=== PATIENT | female | born 1950 | race Caucasian/White ===

== ENCOUNTER 2016-12-04 09:24 | Outpatient (CLI) | payer MEDICARE, OTHER ==
--- NOTE | 2016-12-05 18:27 | Mammography Report ---
DIGITAL SCREENING MAMMOGRAM: 12/04/2016 CLINICAL INDICATION: A 66-year-old with family history of breast cancer for screening. COMPARISON: 11/2015, 10/2014, 11/2012, 11/2011, 11/2010, 11/2009, 11/2008. TECHNIQUE: Routine CC and MLO projections were obtained of the breasts. The breasts again demonstrate heterogeneously dense fibroglandular parenchyma bilaterally. Coarse an d punctate, typically benign calcifications are present. No suspicious masses, clustered microcalcif ications, or regions of architectural distortion are identified. IMPRESSION: BENIGN FINDINGS. RECOMMENDATION: ROUTINE ANNUAL SCREENING UNLESS OTHERWISE CLINICALLY INDICATED. BIRADS CATEGORY: 2, BENIGN FINDINGS. STANDARD QUALIFYING STATEMENTS 1. This examination was reviewed with the aid of Computed-Aided Detection (CAD). 2. A negative or benign imaging report should not delay biopsy if clinically suspicious findings are present. Consider surgical consultation if warranted. More than 5% of cancers are not identified b y imaging. 3. Dense breasts may obscure an underlying neoplasm. JOB #: [id number] EXT JOB #:[id number]
== END 2016-12-04 09:25 | disposition home or self-care (01) ==
LOC: DI 09:24
PROVIDERS: ATTEND Family Medicine
DX: Z12.31 Encounter for screening mammogram for malignant neoplasm of breast (principal); Z80.3 Family history of malignant neoplasm of breast
CPT/HCPCS: 77067

== ENCOUNTER → 2017-02-02 | Outpatient (CLI) | payer MEDICARE, OTHER ==
[2017-02-02 14:24] LABS: CREATININE 0.7 mg/dL (0.4-1.0)
== END ==
LOC: LAB.WCP 08:00
PROVIDERS: ATTEND Orthopaedic Surgery
DX: Z01.812 Encounter for preprocedural laboratory examination (principal)
CPT/HCPCS: 36415; 82565; 84520

== ENCOUNTER 2017-03-17 12:26 | Outpatient (CLI) | payer MEDICARE, OTHER ==
[2017-03-17 12:47] LABS: BASOPHILS # (AUTO) 0.1 10^3/uL (0.0-0.1); BASOPHILS % (AUTO) 0.6 %; EOSINOPHILS # (AUTO) 0.2 10^3/uL (0.0-0.7); EOSINOPHILS % (AUTO) 2.4 %; HCT - HEMATOCRIT 38.2 % (37.0-47.0); LYMPHOCYTES # (AUTO) 2.8 10^3/uL (1.5-3.5); LYMPHOCYTES % (AUTO) 27.1 %; MEAN CORPUSCULAR HEMOGLOBIN 29.5 pg (27.0-31.0); MEAN CORPUSCULAR HGB CONC 34.1 g/dL (32.0-36.0); MEAN CORPUSCULAR VOLUME 86.6 fL (81.0-99.0); MEAN PLATELET VOLUME 7.9 fL (7.9-10.8); MONOCYTES # (AUTO) 0.7 10^3/uL (0.0-1.0); MONOCYTES % (AUTO) 6.6 %; NEUTROPHILS # (AUTO) 6.4 10^3/uL (1.5-6.6); NEUTROPHILS % (AUTO) 63.3 %; NUCLEATED RED BLOOD CELLS AUTO 0.1 /100WBC; RED BLOOD COUNT 4.41 10^6/uL (4.20-5.40); RED CELL DISTRIBUTION WIDTH 12.5 % (12.0-15.0); UNCORRECTED WHITE BLOOD COUNT 10.2 x10^3/uL; WHITE BLOOD COUNT 10.2 x10^3/uL (4.8-10.8)
[2017-03-17 13:01] LABS: ALBUMIN/GLOBULIN RATIO 1.2 (1.0-2.2); BILIRUBIN,TOTAL 0.3 mg/dL (0.2-1.0); CALCIUM 9.5 mg/dL (8.5-10.3); CREATININE 0.9 mg/dL (0.4-1.0); POTASSIUM 3.8 mmol/L (3.5-5.0); TOTAL PROTEIN 7.4 g/dL (6.7-8.2)
== END 2017-03-17 12:27 | disposition home or self-care (01) ==
LOC: LAB 12:26
PROVIDERS: ATTEND Family Medicine
DX: R10.9 Unspecified abdominal pain (principal)
CPT/HCPCS: 36415; 80053; 85025; 85651; 86140

== ENCOUNTER 2017-04-21 12:10 | Outpatient (CLI) | payer MEDICARE, OTHER ==
[2017-04-21 12:33] LABS: BASOPHILS # (AUTO) 0.1 10^3/uL (0.0-0.1); BASOPHILS % (AUTO) 0.6 %; EOSINOPHILS # (AUTO) 0.5 10^3/uL (0.0-0.7); EOSINOPHILS % (AUTO) 5.4 %; HCT - HEMATOCRIT 37.4 % (37.0-47.0); HGB - HEMOGLOBIN 12.7 g/dL (12.0-16.0); LYMPHOCYTES # (AUTO) 2.6 10^3/uL (1.5-3.5); LYMPHOCYTES % (AUTO) 30.4 %; MEAN CORPUSCULAR HEMOGLOBIN 29.3 pg (27.0-31.0); MEAN CORPUSCULAR HGB CONC 34.1 g/dL (32.0-36.0); MEAN CORPUSCULAR VOLUME 85.8 fL (81.0-99.0); MEAN PLATELET VOLUME 7.4 fL (7.9-10.8); MONOCYTES # (AUTO) 0.5 10^3/uL (0.0-1.0); MONOCYTES % (AUTO) 6.4 %; NEUTROPHILS # (AUTO) 4.8 10^3/uL (1.5-6.6); NEUTROPHILS % (AUTO) 57.2 %; NUCLEATED RED BLOOD CELLS AUTO 0.1 /100WBC; RED BLOOD COUNT 4.35 10^6/uL (4.20-5.40); RED CELL DISTRIBUTION WIDTH 12.7 % (12.0-15.0); UNCORRECTED WHITE BLOOD COUNT 8.4 x10^3/uL; WHITE BLOOD COUNT 8.4 x10^3/uL (4.8-10.8)
[2017-04-21 12:46] LABS: ALBUMIN/GLOBULIN RATIO 1.2 (1.0-2.2); BILIRUBIN,TOTAL 0.7 mg/dL (0.2-1.0); CALCIUM 8.9 mg/dL (8.5-10.3); CREATININE 0.7 mg/dL (0.4-1.0); POTASSIUM 3.2 mmol/L (3.5-5.0); TOTAL PROTEIN 7.2 g/dL (6.7-8.2)
--- NOTE | 2017-04-22 15:49 | XRAY Report ---
EXAM: CHEST RADIOGRAPHY EXAM DATE: 04/21/2017 12:52 PM. CLINICAL HISTORY: Cough COMPARISON: 10/23/2010 and 02/22/2015. TECHNIQUE: 2 views. FINDINGS: Lungs/Pleura: No focal opacities evident. No pleural effusion. No pneumothorax. Normal volumes. Mediastinum: Heart and mediastinal contours are unremarkable. Other: None. IMPRESSION: No acute radiographic abnormality identified. [facility] Referring Provider Line: [phone] SITE ID: [id number]
== END 2017-04-21 12:11 | disposition home or self-care (01) ==
LOC: LAB 12:10
PROVIDERS: ATTEND Physician Assistant Medical
DX: R10.9 Unspecified abdominal pain (principal); R05 Cough
CPT/HCPCS: 36415; 71020; 80053; 82150; 83690; 85025

== ENCOUNTER 2017-04-24 09:41 | Outpatient (CLI) | payer MEDICARE, OTHER ==
[2017-04-24] MEDS ORDERED: IOPAMIDOL-300 100 ML VIAL ONE (10:11)
[2017-04-24] MEDS ORDERED: IOPAMIDOL-300 50 ML VIAL ONE (10:11)
[2017-04-24] MEDS ORDERED: IOPAMIDOL-300 100 ML VIAL IVP ONE (11:41)
[2017-04-24] MEDS ORDERED: IOPAMIDOL-300 50 ML VIAL PO ONE (11:41)
--- NOTE | 2017-04-24 17:39 | CT Report ---
CT ABDOMEN AND PELVIS WITH CONTRAST: 04/24/2017 CLINICAL INDICATION: Pain. COMPARISON: 04/19/[address] images of the abdomen and pelvis were obtained with 100 mL Isovue-300 intravenously as well as oral contrast. In accordance with CT protocol optimization, one or more of the following dose reduction techniques w ere utilized for this exam: automated exposure control, adjustment of mA and/or KV based on patient size, or use of iterative reconstructive technique. Limited evaluation of the lung bases demonstrates atelectasis. ABDOMEN: The calcification in the posterior right lobe of the liver is stable. No new hepatic lesio n is seen. The spleen, pancreas, kidneys, and adrenal glands are unremarkable. The patient is statu s post cholecystectomy. There is possible wall thickening in the ascending colon, just past the ileo cecal valve. Consider correlation with colonoscopy. No bowel dilatation, free gas, or free fluid is present. No abdominal adenopathy is seen. PELVIS: The pelvic organs appear unremarkable. A few scattered sigmoid diverticula are present, wit hout CT evidence of diverticulitis. No pelvic adenopathy or free fluid is present. Osseous structures demonstrate degenerative changes. IMPRESSION: POSSIBLE WALL THICKENING IN THE ASCENDING COLON, JUST SUPERIOR TO THE ILEOCECAL VALVE. CONSIDER CORRELATION WITH COLONOSCOPY. NO OTHER EVIDENT ETIOLOGY FOR PATIENT'S PAIN. JOB #: [id number] EXT JOB #:[id number]
== END 2017-04-24 09:42 | disposition home or self-care (01) ==
LOC: DI 09:41
PROVIDERS: ATTEND Physician Assistant Medical
DX: R10.9 Unspecified abdominal pain (principal)
CPT/HCPCS: 74177; Q9967

== ENCOUNTER 2017-05-06 03:41 | Emergency (ER) | payer MEDICARE, OTHER ==
--- NOTE | 2017-05-06 04:20 | ED Physician Documentation ---
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 she awoke tonight with generalized pruritis. Review of Systems Constitutional: denies: Fever Throat: denies: Sore throat Cardiac: reports: Reviewed and negative Respiratory: reports: Dyspnea, Cough Skin: denies: Rash PD PAST MEDICAL HISTORY - Past Medical History Past Medical History: Yes Cardiovascular: Hypertension Musculoskeletal: Other - Past Surgical History Past Surgical History: Yes General: Cholecystectomy Ortho: Spine surgery - Present Medications Home Medications: Ambulatory Orders Medication Instructions Recorded Confirmed Calcium Carbonate [Calcium] 1 tab PO DAILY 05/07/14 08/18/15 Cholecalciferol (Vitamin D3) 1 cap PO DAILY 05/07/14 08/18/15 [Vitamin D-3] Cyanocobalamin/Folic Acid [Vitamin 1 tab PO DAILY 05/07/14 08/18/15 H35-Swsik Acid Tablet] Hydrochlorothiazide 25 mg PO DAILY 05/07/14 08/18/15 Ascorbic Acid [Vitamin C] 1,000 mg PO DAILY 03/23/15 08/18/15 Multivitamin [Multivitamins] 1 each PO DAILY 03/23/15 08/18/15 Ubidecarenone/Vit E Acetate [Co 1 each PO DAILY 03/23/15 08/18/15 Q-10 100 mg Softgel] Albuterol Sulf [Ventolin Hfa 1 - 2 puffs INH Q4HR PRN #1 inhaler 05/06/17 Inhaler] Levofloxacin [Levaquin] 500 mg PO DAILY #6 tablet 05/06/17 Prednisone 40 mg PO DAILY 3 Days #6 tablet 05/06/17 - Allergies Allergies/Adverse Reactions: Allergies Allergy/AdvReac Type Severity Reaction Status Date / Time Penicillins Allergy Rash Verified 05/06/17 03:49 codeine AdvReac Unknown Verified 05/06/17 03:49 oxycodone AdvReac Emesis Verified 05/06/17 03:49 - Social History Does the pt smoke?: No Smoking Status: Never smoker Does the pt drink ETOH?: No Does the pt have substance abuse?: No - Immunizations Immunizations are current?: Yes PD ED PE NORMAL - Vitals Vital signs reviewed: Yes - General General: Alert and oriented X 3, No acute distress, Well developed/nourished, Other (frequent cough during H+P, as well as itching) - Cardiac Cardiac: RRR, No murmur - Respiratory Respiratory: No respiratory distress, Clear bilaterally - Derm Derm: Normal color, Warm and dry, No rash Results - Vitals Vitals: Oxygen O2 Source Room air PD MEDICAL DECISION MAKING - ED course Complexity details: reviewed results, re-evaluated patient (significant improvement subsequent to albuterol neb, PO benadryl;minimal cough and no itching prior to discharge), considered differential, d/w patient Departure - Departure Disposition: 01 Home, Self Care Clinical Impression: Bronchitis Condition: Good Instructions: ED Drug React Allergic, ED Upper Resp Infec Abx Tx Prescriptions: Albuterol Sulf [Ventolin Hfa Inhaler] 1 - 2 puffs INH Q4HR PRN #1 inhaler PRN Reason: Shortness Of Air/Wheezing Levofloxacin [Levaquin] 500 mg PO DAILY #6 tablet Prednisone 40 mg PO DAILY 3 Days #6 tablet Comments: Discontinue the zithromax and start taking the levaquin Discharge Date/Time: 05/06/17 06:21
[2017-05-06] MEDS ORDERED: diphenhydrAMINE 25 MG CAPSULE PO STA (04:43)
[2017-05-06] MEDS ORDERED: ALBUTEROL NEB 2.5 MG/3 ML INH STA (04:43)
[2017-05-06] MEDS ORDERED: predniSONE 20 MG TABLET PO STA (04:44)
[2017-05-06] MEDS ORDERED: diphenhydrAMINE 25 MG CAPSULE PO ONE (04:54)
[2017-05-06] MEDS ORDERED: predniSONE 20 MG TABLET ONE (04:54)
[2017-05-06] MEDS ORDERED: ALBUTEROL NEB 2.5 MG/3 ML INH ONE (05:14)
[2017-05-06] MEDS ORDERED: levoFLOXacin 250 MG TABLET PO STA (05:58)
[2017-05-06] MEDS ORDERED: levoFLOXacin 250 MG TABLET ONE (06:13)
[2017-05-06 06:17] VITALS: BP 171/67
== END 2017-05-06 06:21 | disposition home or self-care (01) ==
LOC: ED 03:41
DX: J40 Bronchitis, not specified as acute or chronic (principal); I10 Essential (primary) hypertension
CPT/HCPCS: 94640; 99283; A9270; J7512; J7613

== ENCOUNTER 2017-06-27 09:50 | Outpatient (CLI) | payer MEDICARE, OTHER ==
--- NOTE | 2017-06-27 12:01 | XRAY Report ---
TWO-VIEW CHEST: 06/27/2017 CLINICAL INDICATION: Bronchitis. COMPARISON: 04/21/2017 FINDINGS: Frontal and lateral views of the chest demonstrate a normal cardiac silhouette. The lungs are clear. No effusion or pneumothorax is present. IMPRESSION: NORMAL CHEST, UNCHANGED. JOB #: [id number] EXT JOB #:[id number]
== END 2017-06-27 09:51 | disposition home or self-care (01) ==
LOC: DI 09:50
PROVIDERS: ATTEND Family Medicine
DX: J20.9 Acute bronchitis, unspecified (principal)
CPT/HCPCS: 71020

== ENCOUNTER 2017-09-25 08:00 | Outpatient (CLI) | payer MEDICARE, OTHER | END 2017-09-25 08:01 | disposition home or self-care (01) | LOC: LAB.WCP 08:00 | PROVIDERS: ATTEND Family Medicine | DX: M06.4 Inflammatory polyarthropathy (principal) | CPT/HCPCS: 36415; 85651 ==

== ENCOUNTER 2017-10-26 16:00 | Outpatient (CLI) | payer MEDICARE, OTHER ==
--- NOTE | 2017-10-26 16:59 | XRAY Report ---
EXAM: CHEST RADIOGRAPHY EXAM DATE: 10/26/2017 04:15 PM. CLINICAL HISTORY: COUGH. COMPARISON: None. TECHNIQUE: 2 views. FINDINGS: Lungs/Pleura: No focal opacities evident. No pleural effusion. No pneumothorax. Normal volumes. Mediastinum: Heart and mediastinal contours are unremarkable. There is thoracic aortic calcification. Other: None. IMPRESSION: No acute intrathoracic plain film abnormality. [facility] Referring Provider Line: [phone] SITE ID: [id number]
== END 2017-10-26 16:01 | disposition home or self-care (01) ==
LOC: DI 16:00
PROVIDERS: ATTEND Family Medicine
DX: R05 Cough (principal)
CPT/HCPCS: 71046

== ENCOUNTER 2017-11-12 16:46 | Emergency (ER) | payer MEDICARE, OTHER ==
[2017-11-12 17:41] LABS: BASOPHILS # (AUTO) 0.1 10^3/uL (0.0-0.1); BASOPHILS % (AUTO) 0.8 %; EOSINOPHILS # (AUTO) 0.6 10^3/uL (0.0-0.7); EOSINOPHILS % (AUTO) 5.4 %; HGB - HEMOGLOBIN 12.3 g/dL (12.0-16.0); LYMPHOCYTES # (AUTO) 2.5 10^3/uL (1.5-3.5); LYMPHOCYTES % (AUTO) 23.8 %; MEAN CORPUSCULAR HEMOGLOBIN 29.6 pg (27.0-31.0); MEAN CORPUSCULAR HGB CONC 34.5 g/dL (32.0-36.0); MEAN PLATELET VOLUME 7.3 fL (7.9-10.8); MONOCYTES # (AUTO) 0.7 10^3/uL (0.0-1.0); MONOCYTES % (AUTO) 7.2 %; NEUTROPHILS # (AUTO) 6.5 10^3/uL (1.5-6.6); NEUTROPHILS % (AUTO) 62.8 %; PLT - PLATELET COUNT 305 10^3/uL (130-450); RED BLOOD COUNT 4.16 10^6/uL (4.20-5.40); RED CELL DISTRIBUTION WIDTH 13.4 % (12.0-15.0); WHITE BLOOD COUNT 10.4 x10^3/uL (4.8-10.8)
--- NOTE | 2017-11-12 17:58 | XRAY Report ---
EXAM: CHEST RADIOGRAPHY EXAM DATE: 11/12/2017 05:45 PM. CLINICAL HISTORY: Cough. COMPARISON: 10/26/2017. TECHNIQUE: 2 views. FINDINGS: Lungs/Pleura: Mild interstitial prominence. No definite localized infiltrate, consolidation, effusion , or pneumothorax. Mediastinum: Heart and mediastinal contours are unremarkable. Other: Degenerative changes. IMPRESSION: No acute disease. [facility] Referring Provider Line: [phone] SITE ID: [id number]
[2017-11-12 17:59] LABS: ALBUMIN 3.9 g/dL (3.2-5.5); ALBUMIN/GLOBULIN RATIO 1.1 (1.0-2.2); BILIRUBIN,TOTAL 0.4 mg/dL (0.2-1.0); CALCIUM 9.2 mg/dL (8.5-10.3); CREATININE 0.9 mg/dL (0.4-1.0); TOTAL PROTEIN 7.6 g/dL (6.7-8.2)
[2017-11-12 18:15] LABS: BILIRUBIN,URINE NEGATIVE (NEGATIVE); GLUCOSE, URINE (UA) NEGATIVE (NEGATIVE); KETONES,URINE (UA) NEGATIVE (NEGATIVE); LEUKOCYTE ESTERASE, URINE MODERATE (NEGATIVE); NITRITE,URINE POSITIVE (NEGATIVE); OCCULT BLOOD,URINE TRACE-INTA (NEGATIVE); PH,URINE 5.5 PH (5.0-7.5); PROTEIN,URINE NEGATIVE (NEGATIVE); UROBILINOGEN,URINE 0.2 (NORMAL) E.U./dL (NORMAL)
[2017-11-12 18:17] LABS: CLARITY,URINE HAZY (CLEAR)
[2017-11-12 18:35] LABS: BACTERIA,URINE Many /HPF (None Seen); RBC,URINE 0-5 /HPF (0-5)
[2017-11-12 18:36] LABS: SQUAMOUS EPITHELIAL CELL,UR NONE SEEN (<= Few)
[2017-11-12 18:44] VITALS: BP 142/84
[2017-11-12] MEDS ORDERED: cefTRIAXone 1 GM VIAL IM STA (18:56)
[2017-11-12] MEDS ORDERED: LIDOCAINE 1% 2 ML VIAL SUBQ ONE (18:56)
--- NOTE | 2017-11-12 19:11 | ED Physician Documentation ---
PD HPI URI - Stated complaint Stated Complaint: FATIGUE/COUGH/ALL OVER PX - Chief complaint Chief Complaint: Resp - History obtained from History obtained from: Patient, Family - History of Present Illness Timing - onset: How many weeks ago (6) Timing duration: Weeks (6) Timing details: Gradual onset Pain level max: 5 Pain level now: 4 Associated symptoms: Nasal congestion, Rhinorrhea, Dry cough. No: Fever Contributing factors: Sick contact Improves by: Rest Worsened by: Activity, Breathing Recently seen: Clinic - Additional information Additional information: Patient is a 66-year-old female who presents to the emergency department with intermittent illnesses for the past 6 week. Started with vomiting diarrhea, then progressed to respiratory symptoms. Has seen her PCP multiple times for same. Review of Systems Constitutional: denies: Fever, Chills Ears: denies: Ear pain Nose: reports: Rhinorrhea / runny nose, Congestion Throat: denies: Sore throat Cardiac: denies: Chest pain / pressure Respiratory: reports: Cough. denies: Wheezing GI: denies: Abdominal Pain, Nausea, Vomiting, Diarrhea : reports: Dysuria (mild) Skin: denies: Rash Musculoskeletal: denies: Neck pain, Back pain Neurologic: denies: Headache PD PAST MEDICAL HISTORY - Past Medical History Past Medical History: Yes Cardiovascular: Hypertension Musculoskeletal: Other - Past Surgical History Past Surgical History: Yes General: Cholecystectomy Ortho: Spine surgery - Present Medications Home Medications: Ambulatory Orders Medication Instructions Recorded Confirmed Calcium Carbonate [Calcium] 1 tab PO DAILY 05/07/14 11/12/17 Cholecalciferol (Vitamin D3) 1 cap PO DAILY 05/07/14 11/12/17 [Vitamin D-3] Cyanocobalamin/Folic Acid [Vitamin 1 tab PO DAILY 05/07/14 11/12/17 P83-Ucxdj Acid Tablet] Hydrochlorothiazide 25 mg PO DAILY 05/07/14 11/12/17 Ascorbic Acid [Vitamin C] 1,000 mg PO DAILY 03/23/15 11/12/17 Multivitamin [Multivitamins] 1 each PO DAILY 03/23/15 11/12/17 Ubidecarenone/Vit E Acetate [Co 1 each PO DAILY 03/23/15 11/12/17 Q-10 100 mg Softgel] Albuterol Sulf [Ventolin Hfa 1 - 2 puffs INH Q4HR PRN #1 inhaler 05/06/17 Inhaler] Benzonatate [Tessalon Perle] 100 - 200 mg PO TID PRN #30 capsule 11/12/17 Hydrocodone/Chlorphen P-Stirex 5 ml PO BID PRN #90 ml 11/12/17 [Hydrocodone-Chlorphen ER Susp] Nitrofurantoin Monohyd/M-Cryst 100 mg PO BID #10 capsule 11/12/17 [Macrobid 100 mg Capsule] - Allergies Allergies/Adverse Reactions: Allergies Allergy/AdvReac Type Severity Reaction Status Date / Time Penicillins Allergy Rash Verified 05/06/17 03:49 codeine AdvReac Unknown Verified 05/06/17 03:49 oxycodone AdvReac Emesis Verified 05/06/17 03:49 - Social History Does the pt smoke?: No Smoking Status: Never smoker Does the pt drink ETOH?: No Does the pt have substance abuse?: No - Immunizations Immunizations are current?: Yes PD ED PE NORMAL - Vitals Vital signs reviewed: Yes - General General: Alert and oriented X 3, No acute distress - HEENT HEENT: PERRL, Ears normal, Moist mucous membranes, Pharynx benign - Neck Neck: Supple, no meningeal sign, No adenopathy - Cardiac Cardiac: RRR, No murmur - Respiratory Respiratory: No respiratory distress, Clear bilaterally - Abdomen Abdomen: Soft, Non tender, Non distended - Back Back: No CVA TTP, No spinal TTP - Derm Derm: Warm and dry - Extremities Extremities: No edema - Neuro Neuro: Alert and oriented X 3 - Psych Psych: Normal mood, Normal affect Results - Vitals Vitals: Oxygen O2 Source Room air - Labs Labs: Microbiology 11/12/17 17:25 Urine Culture - Final Urine,Clean Catch Escherichia Coli Laboratory Tests 11/12/17 11/12/17 11/12/17 17:25 17:28 17:28 WBC 10.4 RBC 4.16 L Hgb 12.3 Hct 35.8 L MCV 86.0 MCH 29.6 MCHC 34.5 RDW 13.4 Plt Count 305 MPV 7.3 L Neut # 6.5 Lymph # 2.5 Stone # 0.7 Eos # 0.6 Baso # 0.1 Absolute Nucleated RBC 0.00 Nucleated RBC % 0.0 Sodium 136 Potassium 3.7 Chloride 96 L Carbon Dioxide 31 Anion Gap 9.0 BUN 22 H Creatinine 0.9 Estimated GFR (MDRD) 62 L Glucose 122 H Calcium 9.2 Total Bilirubin 0.4 AST 18 ALT 17 Alkaline Phosphatase 86 Total Protein 7.6 Albumin 3.9 Globulin 3.7 Albumin/Globulin Ratio 1.1 Lipase 22 Urine Color YELLOW Urine Clarity HAZY Urine pH 5.5 Ur Specific Kelly 1.015 Urine Protein NEGATIVE Urine Glucose (UA) NEGATIVE Urine Ketones NEGATIVE Urine Occult Blood TRACE-INTA Urine Nitrite POSITIVE H Urine Bilirubin NEGATIVE Urine Urobilinogen 0.2 (NORMAL) Ur Leukocyte Esterase MODERATE H Urine RBC 0-5 Urine WBC >25 H Ur Squamous Epith Cells NONE SEEN Urine Bacteria Many H Ur Microscopic Review INDICATED Urine Culture Comments INDICATED - Rads (name of study) cxr Radiology: Prelim report reviewed, EMP read contemporaneously, See rad report ( no acute disease) PD MEDICAL DECISION MAKING - ED course Complexity details: reviewed results, re-evaluated patient, considered differential, d/w patient, d/w family ED course: Patient is a 66-year-old female who presents to the emergency department with what appears to be a viral upper respiratory infection. She is also found to have a urinary tract infection. Given IM Rocephin and will place on oral antibiotics. She is well-appearing, nontoxic. No respiratory distress or hypoxia. Will prescribe cough medication for home as well. We will have her follow-up with her doctor for further care. Patient counseled regarding signs and symptoms for which I believe and urgent re-evaluation would be necessary. Patient with good understanding of and agreement to plan and is comfortable going home at this time This document was made in part using voice recognition software. While efforts are made to proofread this document, sound alike and grammatical errors may occur. Departure - Departure Disposition: Home, Self Care Clinical Impression: Viral URI UTI (urinary tract infection) Qualifiers: Urinary tract infection type: acute cystitis Hematuria presence: without hematuria Qualified Code(s): N30.00 - Acute cystitis without hematuria Condition: Good Instructions: ED UTI Cystitis Female, ED Viral Syndrome Follow-Up: Valerio Hightower MD [Primary Care Provider] - Within 1 week Prescriptions: Benzonatate [Tessalon Perle] 100 - 200 mg PO TID PRN #30 capsule PRN Reason: Cough Hydrocodone/Chlorphen P-Stirex [Hydrocodone-Chlorphen ER Susp] 5 ml PO BID PRN # 90 ml PRN Reason: Cough Nitrofurantoin Monohyd/M-Cryst [Macrobid 100 mg Capsule] 100 mg PO BID #10 capsule Comments: Return if you worsen. Take all antibiotics until gone. Do not drink alcohol or drive while on narcotic pain medicine. Note that many narcotic pain relievers also contain tylenol/acetaminophen. Please ensure that your total dose of acetaminophen from all sources does not exceed 3 grams (3000mg) per day. You may constipated on this medication, take a stool softener such as "Colace" twice a day while you are on it. Also recommend a posn-etb-khbfvrt laxative such as senna or MiraLAX any day that you do not have a bowel movement. If you received narcotic pain medication in the emergency department, do not drive or operate machinery for the next 24 hours. Discharge Date/Time: 11/12/17 19:27
== END 2017-11-12 19:27 | disposition home or self-care (01) ==
LOC: ED 16:46
DX: N30.00 Acute cystitis without hematuria (principal); I10 Essential (primary) hypertension
CPT/HCPCS: 36415; 71046; 80053; 81001; 81003; 83690; 85025; 87086; 96372; 99283; 99284

== ENCOUNTER 2017-12-04 10:37 | Outpatient (CLI) | payer MEDICARE, OTHER ==
--- NOTE | 2017-12-05 13:50 | Mammography Report ---
DIGITAL SCREENING MAMMOGRAM: 12/04/2017 CLINICAL INDICATION: A 67-year-old with family history of breast cancer for screening. COMPARISON: 11/2016, 11/2015, 10/2014, 11/2012, 11/2011, 11/2010, 11/2009. TECHNIQUE: Routine CC and MLO projections were obtained of the breasts. FINDINGS: The breasts again demonstrate heterogeneously dense fibroglandular parenchyma bilaterally. Circumscribed nodules are stable. Coarse and punctate, typically benign calcifications are present. No suspicious masses, clustered microcalcifications, or regions of architectural distortion are identified. IMPRESSION: BENIGN FINDINGS. RECOMMENDATION: Routine annual screening unless otherwise clinically indicated. BI-RADS CATEGORY 2 - BENIGN FINDINGS. STANDARD QUALIFYING STATEMENTS: 1. This examination was reviewed with the aid of Computer-Aided Detection (CAD). 2. A negative or benign imaging report should not delay biopsy if clinically suspicious findings are present. Consider surgical consultation if warranted. More than 5% of cancers are not identified by imaging. 3. Dense breasts may obscure an underlying neoplasm. TD: 12/05/2017 13:49
== END 2017-12-04 10:38 | disposition home or self-care (01) ==
LOC: DI.N 10:37
PROVIDERS: ATTEND Family Medicine
DX: Z12.31 Encounter for screening mammogram for malignant neoplasm of breast (principal); Z80.3 Family history of malignant neoplasm of breast
CPT/HCPCS: 77067

== ENCOUNTER 2018-10-31 08:00 | Outpatient (CLI) | payer MEDICARE, OTHER ==
[2018-11-06 17:11] LABS: B. PARAPERTUSSIS DNA NOT DETECTED; B. PERTUSSIS DNA NOT DETECTED; SOURCE NASOPHARYNGEAL
== END 2018-10-31 23:59 | disposition home or self-care (01) ==
LOC: LAB.WCP 08:00
PROVIDERS: ATTEND Family Medicine
DX: R05 Cough (principal)
CPT/HCPCS: 36415; 87801

== ENCOUNTER 2018-10-31 08:25 | Outpatient (CLI) | payer MEDICARE, OTHER ==
--- NOTE | 2018-10-31 14:31 | XRAY Report ---
Reason: COUGH Procedure Date: 10/31/2018 Accession Number: [id number] / [id number] Procedure: XR - Chest 2 View X-Ray CPT Code: 63464 FULL RESULT: EXAM: CHEST RADIOGRAPHY EXAM DATE: 10/31/2018 08:42 AM. CLINICAL HISTORY: COUGH. COMPARISON: CHEST 2 VIEW 11/12/2017 5:36 PM. TECHNIQUE: 2 views. FINDINGS: Lungs/Pleura: No focal opacities evident. No pleural effusion. No pneumothorax. Normal volumes. Mediastinum: Heart and mediastinal contours are unremarkable. Other: None. IMPRESSION: Normal 2-view chest radiography. [facility]
== END 2018-10-31 08:26 | disposition home or self-care (01) ==
LOC: DI 08:25
PROVIDERS: ATTEND Family Medicine
DX: R05 Cough (principal)
CPT/HCPCS: 71046

== ENCOUNTER 2018-11-15 08:00 | Outpatient (CLI) | payer MEDICARE, OTHER | END 2018-11-15 23:59 | disposition home or self-care (01) | LOC: LAB.R 08:00 | PROVIDERS: ATTEND Family Medicine | DX: R30.0 Dysuria (principal) | CPT/HCPCS: 87086; 87181 ==

== ENCOUNTER 2018-11-23 13:16 | Outpatient (CLI) | payer MEDICARE, OTHER ==
[~2018-11-23 13:16] MED LIST: ALBUTEROL NEB 2.5 MG/3 ML INH ONE
== END 2018-11-23 13:17 | disposition home or self-care (01) ==
LOC: RT 13:16
PROVIDERS: ATTEND Family Medicine
DX: J18.9 Pneumonia, unspecified organism (principal); J45.901 Unspecified asthma with (acute) exacerbation
CPT/HCPCS: 94060

== ENCOUNTER 2019-01-13 07:40 | Outpatient (CLI) | payer MEDICARE, OTHER ==
--- NOTE | 2019-01-13 08:53 | Mammography Report ---
Reason: SCREENING MAMMO Procedure Date: 01/13/2019 Accession Number: [id number] / [id number] Procedure: [facility]NA - Screening Mammo w/Chet CPT Code: FULL RESULT: EXAM: Screening Mammo w/Chet DATE: 01/13/2019 8:05 AM CLINICAL HISTORY: Screening encounter. Family history of breast cancer in the sister at an unknown age. TECHNIQUE: (B) - Bilateral CC and MLO views were obtained. COMPARISON: 12/04/2017 through 11/26/2014. PARENCHYMAL PATTERN: (A) - The breast(s) demonstrate(s) scattered fibroglandular densities. FINDINGS: There are coarse typically benign calcifications. In the right breast, best seen in the MLO projection 6 cm from the nipple in the retroareolar breast cone is a 0.8 cm partially obscured nodule, best delineated on MLO image 42 which possibly corresponds to the right cc nodules seen 5 cm from the nipple on image 41. This finding requires additional clarification by right breast ultrasound and spot views as it is not tomographically seen on previous studies and stability is not definitely established. There are no suspicious masses, calcifications, or areas of distortion in the left breast. IMPRESSION: Incomplete examination. BI-RADS category 0. RECOMMENDATION: (ADDMU) - Additional views using both Mammography and Ultrasound recommended. BI-RADS CATEGORY: (0) - Incomplete Examination - need additional evaluation. STANDARD QUALIFYING STATEMENTS: 1. This examination was not reviewed with the aid of Computer-Aided Detection (CAD). 2. A negative or benign imaging report should not preclude biopsy if clinically suspicious findings are present. 3. Dense breasts may obscure an underlying neoplasm. 4. This examination was reviewed with the aid of 3D breast imaging (tomosynthesis).
== END 2019-01-13 07:41 | disposition home or self-care (01) ==
LOC: DI 07:40
DX: Z12.31 Encounter for screening mammogram for malignant neoplasm of breast (principal); R92.8 Other abnormal and inconclusive findings on diagnostic imaging of breast; Z80.3 Family history of malignant neoplasm of breast
CPT/HCPCS: 77063; 77067

== ENCOUNTER 2019-01-22 08:45 | Outpatient (CLI) | payer MEDICARE, OTHER ==
--- NOTE | 2019-01-22 12:01 | Mammography Report ---
Reason: ABNORMAL MAMMOGRAM Procedure Date: 01/22/2019 Accession Number: [id number] / [id number] Procedure: VANDANA - Diag Special Views Dig RT CPT Code: FULL RESULT: EXAM: Diag Special Views Dig RT DATE: 01/22/2019 9:16 AM CLINICAL HISTORY: Diagnostic examination. The patient is recalled from screening for a partially obscured right breast nodule. TECHNIQUE: (B) - Bilateral CC and MLO views were obtained. COMPARISON: 01/13/2019 through 11/26/2014. PARENCHYMAL PATTERN: (A) - The breast(s) demonstrate(s) scattered fibroglandular densities. FINDINGS: The right breast 12:00 nodule approximately 6 cm deep to the nipple is not well seen on spot imaging but clearly redemonstrated on 3-D right ML projection is a 7 mm isodense well-circumscribed nodule. Focused right breast ultrasound demonstrates a 0.6 x 0.6 x 0.3 cm hypoechoic nodule at the 11:30 position approximately 4 cm from the nipple which corresponds in shape and appears probably benign, wider than tall, distinct border. Similar in appearance is a wider than tall well circumscribed hypoechoic 0.9 x 1.2 x 0.5 cm nodule at the 5:30 position approximately 4 cm from the nipple which corresponds to a mammographic nodule in the lower central breast was long-term mammographic stability, typically benign. Both probably represent fibroadenoma. There are no suspicious masses, calcifications, or areas of distortion. IMPRESSION: Probably Benign. BI-RADS category 3. RECOMMENDATION: (6MOS) - Recommend 6 month follow-up exam. Of the right breast with mammography and ultrasound. BI-RADS CATEGORY: (3) - Probably Benign. STANDARD QUALIFYING STATEMENTS: 1. This examination was not reviewed with the aid of Computer-Aided Detection (CAD). 2. A negative or benign imaging report should not preclude biopsy if clinically suspicious findings are present. 3. Dense breasts may obscure an underlying neoplasm. 4. This examination was reviewed with the aid of 3D breast imaging (tomosynthesis).
== END 2019-01-22 08:46 | disposition home or self-care (01) ==
LOC: DI 08:45
PROVIDERS: ATTEND Family Medicine
DX: R92.8 Other abnormal and inconclusive findings on diagnostic imaging of breast (principal); N63.10 Unspecified lump in the right breast, unspecified quadrant
CPT/HCPCS: 76642; 77065; G0279

== ENCOUNTER 2019-05-01 08:00 | Outpatient (CLI) | payer MEDICARE, OTHER ==
[2019-05-01 18:54] LABS: BASOPHILS % (AUTO) 0.3 %; EOSINOPHILS # (AUTO) 0.2 10^3/uL (0.0-0.7); EOSINOPHILS % (AUTO) 1.9 %; HGB - HEMOGLOBIN 11.7 g/dL (12.0-16.0); LYMPHOCYTES # (AUTO) 3.1 10^3/uL (1.5-3.5); LYMPHOCYTES % (AUTO) 32.1 %; MEAN CORPUSCULAR HEMOGLOBIN 28.3 pg (27.0-31.0); MEAN CORPUSCULAR HGB CONC 31.4 g/dL (32.0-36.0); MEAN CORPUSCULAR VOLUME 90.1 fL (81.0-99.0); MONOCYTES # (AUTO) 0.7 10^3/uL (0.0-1.0); NEUTROPHILS # (AUTO) 5.6 10^3/uL (1.5-6.6); NEUTROPHILS % (AUTO) 58.3 %; PLT - PLATELET COUNT 306 10^3/uL (130-450); RED BLOOD COUNT 4.14 10^6/uL (4.20-5.40); RED CELL DISTRIBUTION WIDTH 12.7 % (12.0-15.0); WHITE BLOOD COUNT 9.6 x10^3/uL (4.8-10.8)
[2019-05-01 19:14] LABS: ALBUMIN 3.7 g/dL (3.2-5.5); ALBUMIN/GLOBULIN RATIO 1.1 (1.0-2.2); BILIRUBIN,TOTAL 0.4 mg/dL (0.2-1.0); CREATININE 0.9 mg/dL (0.4-1.0)
== END 2019-05-01 23:59 | disposition home or self-care (01) ==
LOC: LAB.WCP 08:00
PROVIDERS: ATTEND Family Medicine
DX: R10.9 Unspecified abdominal pain (principal)
CPT/HCPCS: 36415; 80053; 82150; 83690; 85025

== ENCOUNTER 2019-05-02 11:34 | Outpatient (CLI) | payer MEDICARE, OTHER ==
[2019-05-02] MEDS ORDERED: IOVERSOL 320 100 ML VIAL IVP ONE ×2 (12:16→13:46)
[2019-05-02] MEDS ORDERED: IOVERSOL 320 50 ML VIAL ONE (12:16)
[2019-05-02] MEDS ORDERED: IOVERSOL 320 50 ML VIAL PO ONE (13:46)
--- NOTE | 2019-05-02 14:33 | CT Report ---
Reason: ABDOMINAL PAIN Procedure Date: 05/02/2019 Accession Number: [id number] / [id number] Procedure: CT - Abdomen/Pelvis W CPT Code: FULL RESULT: EXAM: CT ABDOMEN AND PELVIS EXAM DATE: 05/02/2019 01:40 PM. CLINICAL HISTORY: Abdominal pain. COMPARISONS: ABDOMEN/PELVIS W/ 04/24/2017 11:33 AM. TECHNIQUE: Routine helical CT imaging was performed through the abdomen and pelvis. IV contrast: OPTI 320, 90 mL. Enteric contrast: Yes. Reconstructions: Coronal and sagittal. In accordance with CT protocol optimization, one or more of the following dose reduction techniques were utilized for this exam: automated exposure control, adjustment of mA and/or KV based on patient size, or use of iterative reconstructive technique. FINDINGS: Lung Bases: Unremarkable. Liver: No suspicious masses. There is an incidental benign-appearing round coarse, 14 mm maximal diameter, posterior right hepatic calcification of no significance. Gallbladder/Bile Ducts: Status post cholecystectomy. No biliary dilatation. Spleen: Normal. Pancreas: Normal. Adrenal Glands: Normal. Kidneys: Normal. No masses or hydronephrosis. Peritoneal Cavity/Bowel: No free fluid. No evidence of a bowel obstruction. Again, the ascending colon is not distended from the hepatic flexure to the cecum, and is difficult to evaluate. The cecum, small intestine, and terminal ileum are normal. The appendix is not well-visualized, but there is no evidence of appendicitis. Pelvic Organs: Normal. The bladder and visualized pelvic organs are within normal limits. Vasculature: No aneurysms or other significant abnormality. Bones: No significant abnormality. Other: None. IMPRESSION: 1. Status post cholecystectomy. No biliary dilatation. 2. No evidence of appendicitis. 3. The ascending colon is again not distended and is difficult to evaluate. This finding was also present on the 2017 examination. The cecum, small bowel and terminal ileum are normal. 4. No other significant abnormality. [facility]
== END 2019-05-02 11:35 | disposition home or self-care (01) ==
LOC: DI 11:34
PROVIDERS: ATTEND Family Medicine
DX: R10.9 Unspecified abdominal pain (principal); Z90.49 Acquired absence of other specified parts of digestive tract
CPT/HCPCS: 74177; Q9967

== ENCOUNTER 2019-07-19 08:38 | Emergency (ER) | payer MEDICARE, OTHER ==
[2019-07-19 09:27] VITALS: BP 150/110
[2019-07-19] MEDS ORDERED: DEXAMETHASONE 10 MG/ML VIAL PO STA (09:37)
[2019-07-19] MEDS ORDERED: CHERRY SYRUP 10 ML UDC PO ONE (09:37)
--- NOTE | 2019-07-19 09:39 | ED Physician Documentation ---
PD HPI URI - Stated complaint Stated Complaint: COUGH - Chief complaint Chief Complaint: Resp - History obtained from History obtained from: Patient - History of Present Illness Timing - onset: How many months ago (1) Timing duration: Months (1) Timing details: Gradual onset, Still present Associated symptoms: Fever, Nasal congestion, Rhinorrhea, Sinus pain, Productive cough, Dyspnea Contributing factors: Sick contact Improves by: Rest, Medication Worsened by: Activity Similar symptoms before: Diagnosis (sinusitis and bronchitis) Recently seen: Not recently seen - Additional information Additional information: 68-year-old female with a history of recurrent sinusitis is developed a cough over the past month she is coughing up clear phlegm and she has clear rhinorrhea. She has persistence of this cough and is now developed muscle aches and pains fever and persistence of the cough. She has some shortness of breath associated with this.She indicates that that in the past several months she has had 2 sinus infections as well. Review of Systems Constitutional: reports: Fever Eyes: denies: Decreased vision Ears: denies: Ear pain Nose: reports: Rhinorrhea / runny nose, Congestion, Sinus pressure / pain Throat: denies: Sore throat Cardiac: denies: Chest pain / pressure, Palpitations Respiratory: reports: Dyspnea, Cough GI: denies: Vomiting PD PAST MEDICAL HISTORY - Past Medical History Cardiovascular: Hypertension Neuro: None Endocrine/Autoimmune: None Musculoskeletal: Other Derm: None - Past Surgical History Past Surgical History: Yes General: Cholecystectomy Ortho: Spine surgery - Present Medications Home Medications: Ambulatory Orders Medication Instructions Recorded Confirmed Calcium Carbonate [Calcium] 1 tab PO DAILY 05/07/14 11/12/17 Cholecalciferol (Vitamin D3) 1 cap PO DAILY 05/07/14 11/12/17 [Vitamin D-3] Cyanocobalamin/Folic Acid [Vitamin 1 tab PO DAILY 05/07/14 11/12/17 [id number]-[id number] Acid Tablet] Hydrochlorothiazide 25 mg PO DAILY 05/07/14 11/12/17 Ascorbic Acid [Vitamin C] 1,000 mg PO DAILY 03/23/15 11/12/17 Multivitamin [Multivitamins] 1 each PO DAILY 03/23/15 11/12/17 Ubidecarenone/Vit E Acetate [Co 1 each PO DAILY 03/23/15 11/12/17 Q-10 100 mg Softgel] Albuterol Sulf [Ventolin Hfa 1 - 2 puffs INH Q4HR PRN #1 inhaler 05/06/17 11/12/17 Inhaler] Benzonatate [Tessalon Perle] 100 - 200 mg PO TID PRN #30 capsule 11/12/17 Hydrocodone/Chlorphen P-Stirex 5 ml PO BID PRN #90 ml 11/12/17 [Hydrocodone-Chlorphen ER Susp] Nitrofurantoin Monohyd/M-Cryst 100 mg PO BID #10 capsule 11/12/17 [Macrobid 100 mg Capsule] Azithromycin [Zithromax] 250 mg PO DAILY #6 tablet 07/19/19 - Allergies Allergies/Adverse Reactions: Allergies Allergy/AdvReac Type Severity Reaction Status Date / Time Penicillins Allergy Rash Verified 07/19/19 08:46 codeine AdvReac Unknown Verified 07/19/19 08:46 oxycodone AdvReac Emesis Verified 07/19/19 08:46 - Social History Does the pt smoke?: No Smoking Status: Never smoker Does the pt drink ETOH?: Yes ETOH Use: Wine Does the pt have substance abuse?: No - Immunizations Immunizations are current?: Yes - POLST Patient has POLST: No PD ED PE NORMAL - Vitals Vital signs reviewed: Yes (Hypertensive) - General General: Alert and oriented X 3, No acute distress, Well developed/nourished, Other (Intermittently coughing without overt dyspnea) - HEENT HEENT: Atraumatic, PERRL, EOMI, Ears normal, Pharynx benign, Other (Dry mucous membranes) - Neck Neck: Supple, no meningeal sign, No bony TTP - Cardiac Cardiac: RRR, No murmur - Respiratory Respiratory: No respiratory distress, Clear bilaterally - Abdomen Abdomen: Soft, Non tender - Back Back: No CVA TTP, No spinal TTP - Derm Derm: Normal color, Warm and dry, No rash - Extremities Extremities: No deformity, No edema - Neuro Neuro: Alert and oriented X 3, 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, No motor deficit, No sensory deficit, Normal speech Eye Opening: Spontaneous Motor: Obeys Commands Verbal: Oriented GCS Score: 15 - Psych Psych: Normal mood, Normal affect Results - Vitals Vitals: Vital Signs - 24 hr 07/19/19 07/19/19 08:44 09:24 Temperature 36.0 C L 36.4 C L Heart Rate 89 83 Respiratory 14 20 Rate Blood Pressure 151/82 H 150/110 H O2 Saturation 95 98 Oxygen O2 Source Room air - Labs Labs: Laboratory Tests 07/19/19 08:49 Influenza A (Rapid) Negative Influenza B (Rapid) Negative PD MEDICAL DECISION MAKING - ED course Complexity details: considered differential, d/w patient ED course: 68-year-old female with persistent bronchitis for 1 month duration has not improved we will administer dexamethasone and empirically treat with a azithromycin. She is using Robitussin at home and I have encouraged her to continue to use this as well. Departure - Departure Disposition: Home, Self Care Clinical Impression: Bronchitis Condition: Stable Instructions: ED Upper Resp Infec Abx Tx Follow-Up: Valerio Hightower MD [Primary Care Provider] - Prescriptions: Azithromycin [Zithromax] 250 mg PO DAILY #6 tablet
== END 2019-07-19 09:51 | disposition home or self-care (01) ==
LOC: ED 08:38
DX: J40 Bronchitis, not specified as acute or chronic (principal); I10 Essential (primary) hypertension
CPT/HCPCS: 87275; 87276; 99283; 99284; A9270

== ENCOUNTER 2019-10-25 17:32 | Outpatient (CLI) | payer MEDICARE, OTHER | END 2019-10-25 17:33 | disposition short-term general hospital (02) | LOC: EMS 17:32 | PROVIDERS: ATTEND Surgery | DX: S99.912A Unspecified injury of left ankle, initial encounter (principal); W11.XXXA Fall on and from ladder, initial encounter; Y92.009 Unspecified place in unspecified non-institutional (private) residence as the place of occurrence of the external cause | CPT/HCPCS: A0425; A0427 ==

== ENCOUNTER 2020-03-02 11:07 | Outpatient (CLI) | payer MEDICARE, OTHER ==
--- NOTE | 2020-03-03 10:58 | Ultrasound Report ---
LIMITED ULTRASOUND OF RIGHT BREAST: 03/02/2020 CLINICAL: 6 month follow-up of cysts. Comparison is made to exams dated: 03/02/2020 mammogram, 01/22/2019 mammogram, and 01/22/2019 ultrasound - [facility]. Ultrasound of the right breast was performed. There is a 1 cm x 1 cm x 0.5 cm oval cyst with a smooth internal wall in the right breast at 5 o'cloc k middle depth 4 cm from the nipple. This oval cyst is hypoechoic with internal echoes. This abnorm ality is not significantly changed. There also is a 0.7 cm x 0.7 cm x 0.4 cm oval cyst with a smooth internal wall in the right breast at 12 o'clock middle depth 4 cm from the nipple. This oval cyst is hypoechoic with internal echoes. T his abnormality is not significantly changed. IMPRESSION: PROBABLY BENIGN The 1 cm x 1 cm x 0.5 cm oval cyst in the right breast at 5 o'clock middle depth is consistent with a complicated cyst and is probably benign. A follow-up ultrasound in 6 months is recommended. The 0.7 cm x 0.7 cm x 0.4 cm oval cyst in the right breast at 12 o'clock middle depth is consistent w ith a complicated cyst and is probably benign. A follow-up ultrasound in 6 months is recommended. A follow-up right mammogram and an ultrasound in 6 months is recommended to demonstrate stability. This exam was interpreted at Station ID: [id number]. Electronically Signed By: Christian ibarra/cora:03/02/2020 16:13:55 Ultrasound BI-RADS: 3 Probably benign BI-RADS CATEGORY: (3) - 3 Mammo and [place] [id number] 6 month follow-up LATERALITY: (R)
--- NOTE | 2020-03-03 10:58 | Mammography Report ---
BILATERAL DIGITAL DIAGNOSTIC MAMMOGRAM 3D/2D: 03/02/2020 CLINICAL: 6 month follow-up right breast nodule. Comparison is made to exams dated: 01/22/2017 mammogram, 12/04/2016 mammogram, 12/04/2017 mammogram, 2015 mammogram, 12/19/2012 mammogram, and 11/26/2014 mammogram - [facility]. There a re scattered fibroglandular elements in both breasts. There are stable benign appearing masses with a circumscribed margin in the right breast. There also are stable benign coarse calcifications in the right breast. No significant masses, calcifications, or other findings are seen in either breast. IMPRESSION: INCOMPLETE: NEEDS ADDITIONAL IMAGING EVALUATION Targeted ultrasound is recommended for further evaluation, which will be performed on the same day im mediately following this exam. This exam was interpreted at Station ID: [id number]. NOTE: For mammograms, a report in lay terms will be sent to the patient. Approximately 15% of breast malignancies will not be visualized mammographically. In the management of a palpable breast mass, a negative mammogram must not discourage biopsy of a clinically suspicious lesion. Electronically Signed By: Christian ibarra/cora:03/02/2020 16:09:15 ACR BI-RADS Category 0: Incomplete 3340F PARENCHYMAL PATTERN: (A) - The breast(s) demonstrate(s) scattered fibroglandular densities. BI-RADS CATEGORY: (0) - 0 Ultrasound [id number] Immediate follow-up LATERALITY: (R)
== END 2020-03-02 11:08 | disposition home or self-care (01) ==
LOC: DI 11:07
PROVIDERS: ATTEND Family Medicine
DX: N60.11 Diffuse cystic mastopathy of right breast (principal)
CPT/HCPCS: 76642; 77066

== ENCOUNTER 2020-05-19 14:53 | Outpatient (CLI) | payer MEDICARE, OTHER ==
--- NOTE | 2020-05-19 14:55 | XRAY Report ---
PROCEDURE: Chest 2 View X-Ray INDICATIONS: RLL PNEUMONIA TECHNIQUE: 2 view(s) of the chest. COMPARISON: None. FINDINGS: Surgical changes and devices: None. Lungs and pleura: No pleural effusions or pneumothorax. Lungs are clear. Mediastinum: Mediastinal contours are normal. Heart size is normal. Bones and chest wall: No suspicious bony abnormalities. Soft tissues appear unremarkable. IMPRESSION: No acute pulmonary process. Reviewed by: Cyndee Clements MD on 05/19/2020 2:53 PM PDT Approved by: Cyndee Clements MD on 05/19/2020 2:53 PM PDT Station ID: [id number]
== END 2020-05-19 23:59 | disposition home or self-care (01) ==
LOC: DI.WCP 14:53
PROVIDERS: ATTEND Family Medicine
DX: J18.9 Pneumonia, unspecified organism (principal)
CPT/HCPCS: 71046

== ENCOUNTER 2020-09-23 08:43 | Outpatient (CLI) | payer MEDICARE, OTHER ==
--- NOTE | 2020-09-24 13:25 | Mammography Report ---
UNILATERAL RIGHT DIGITAL DIAGNOSTIC MAMMOGRAM 3D/2D: 09/23/2020 CLINICAL: 6 month follow-up of cysts in right breast. Comparison is made to exams dated: 03/02/2020 ultrasound, 03/02/2020 mammogram, 01/22/2019 mammogram, 12/29 ultrasound, 12/04/2017 mammogram, and 12/04/2017 mammogram - [facility]. There are scattered fibroglandular elements in right breast. There is a stable oval mass with a circumscribed margin in the right breast at 5 o'clock middle depth . There also is an oval asymmetry in the right breast at 12 o'clock anterior depth. This is not signif icantly changed. No other significant masses or calcifications are seen in the breast. IMPRESSION: INCOMPLETE: NEEDS ADDITIONAL IMAGING EVALUATION The stable oval mass in the right breast at 5 o'clock middle depth most likely is a fibroadenoma. The oval asymmetry in the right breast at 12 o'clock anterior depth unchanged but remains indetermina te. Ultrasound is recommended for full evaluation of these areas. This was performed immediately followin g this exam. This exam was interpreted at Station ID: [id number]. NOTE: For mammograms, a report in lay terms will be sent to the patient. Approximately 15% of breast malignancies will not be visualized mammographically. In the management of a palpable breast mass, a negative mammogram must not discourage biopsy of a clinically suspicious lesion. Electronically Signed By: Maribell yoo/:09/23/2020 10:31:58 ACR BI-RADS Category 0: Incomplete 3340F PARENCHYMAL PATTERN: (A) - The breast(s) demonstrate(s) scattered fibroglandular densities. BI-RADS CATEGORY: (0) - 0 Ultrasound [id number] Immediate follow-up LATERALITY: (B)
--- NOTE | 2020-09-24 13:25 | Ultrasound Report ---
LIMITED ULTRASOUND OF RIGHT BREAST: 09/23/2020 CLINICAL: Patient returns for short term follow-up of a probably benign mass in the right breast. Comparison is made to exams dated: 09/23/2020 mammogram, 03/02/2020 ultrasound, 03/02/2020 mammogram, 12/29 mammogram, 01/22/2019 ultrasound, and 12/04/2017 mammogram - [facility]. Color flow and real-time ultrasound of the right breast 5-6 o'clock and 11-12 o'clock regions were pe rformed. Wright scale images of the real-time examination were reviewed. There is a 1.3 cm x 1.1 cm x 0.6 cm oval mass in the right breast at 5 o'clock posterior depth 5 cm f rom the nipple. This oval mass is hypoechoic with internal echoes and no posterior acoustic shadowin g or enhancement. Color flow imaging demonstrates that there is no vascularity present. 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 There also is a stable 0.7 cm x 0.7 cm x 0.4 cm oval cyst with an irregular internal wall in the righ t breast at 12 o'clock anterior depth 4 cm from the nipple. This correlates with mammography finding s. Color flow imaging demonstrates that there is no vascularity present. IMPRESSION: PROBABLY BENIGN The 1.3 cm oval mass in the right breast at 5 o'clock posterior depth has a differential diagnosis of a complicated cyst or a fibroadenoma. It shows retirement stability on mammograms and is probably be nign. A follow-up ultrasound in 6 months is recommended given mild possible size increase. The 0.7 cm oval cyst in the right breast at 12 o'clock anterior depth is stable, probably a complicat ed cyst or fibroadenoma and is also probably benign. A follow-up right ultrasound in 6 months is krystal mmended to demonstrate stability. Findings and recommendations were conveyed to the patient at time of exam. This exam was interpreted at Station ID: [id number]. Electronically Signed By: Maribell yoo/:09/23/2020 11:28:16 Ultrasound BI-RADS: 3 Probably benign BI-RADS CATEGORY: (3) - 3 Ultrasound [id number] 6 month follow-up LATERALITY: (R)
== END 2020-09-23 08:44 | disposition home or self-care (01) ==
LOC: DI 08:43
PROVIDERS: ATTEND Family Medicine
DX: R92.8 Other abnormal and inconclusive findings on diagnostic imaging of breast (principal); N60.01 Solitary cyst of right breast

== ENCOUNTER 2020-12-08 08:00 | Outpatient (CLI) | payer MEDICARE, OTHER ==
[2020-12-08 17:56] LABS: BASOPHILS # (AUTO) 0.1 10^3/uL (0.0-0.1); BASOPHILS % (AUTO) 0.4 %; EOSINOPHILS # (AUTO) 0.4 10^3/uL (0.0-0.7); HCT - HEMATOCRIT 40.5 % (37.0-47.0); LYMPHOCYTES # (AUTO) 2.9 10^3/uL (1.5-3.5); LYMPHOCYTES % (AUTO) 23.7 %; MEAN CORPUSCULAR HEMOGLOBIN 27.8 pg (27.0-31.0); MEAN CORPUSCULAR HGB CONC 29.6 g/dL (32.0-36.0); MONOCYTES # (AUTO) 0.8 10^3/uL (0.0-1.0); MONOCYTES % (AUTO) 6.6 %; NEUTROPHILS # (AUTO) 8.1 10^3/uL (1.5-6.6); NEUTROPHILS % (AUTO) 65.5 %; PLT - PLATELET COUNT 358 10^3/uL (130-450); RED BLOOD COUNT 4.31 10^6/uL (4.20-5.40); RED CELL DISTRIBUTION WIDTH 13.3 % (12.0-15.0); WHITE BLOOD COUNT 12.3 x10^3/uL (4.8-10.8)
[2020-12-08 19:03] LABS: ALBUMIN 3.9 g/dL (3.2-5.5); ALBUMIN/GLOBULIN RATIO 1.1 (1.0-2.2); ALKALINE PHOSPHATASE 89 IU/L (42-121); ALT ALANINE AMINOTRANSFERASE 18 IU/L (10-60); AST ASPARTATE AMINOTRANSFERASE 19 IU/L (10-42); BILIRUBIN,TOTAL 0.8 mg/dL (0.2-1.0); BUN - BLOOD UREA NITROGEN 33 mg/dL (6-20); CALCIUM 9.4 mg/dL (8.5-10.3); CARBON DIOXIDE - CO2 28 mmol/L (21-32); CHLORIDE 101 mmol/L (101-111); CHOL/HDL RATIO 4.7 (<4.4); CHOLESTEROL 261 mg/dL; CREATININE 0.9 mg/dL (0.4-1.0); GFR - MDRD 62 (>89); GLUCOSE 97 mg/dL (70-100); HDL CHOLESTEROL 55 mg/dL; LDL CHOLESTEROL,CALCULATED 171 mg/dL; LDL/HDL RATIO 3.1 (<4.4); POTASSIUM 4.2 mmol/L (3.5-5.0); SODIUM 139 mmol/L (135-145); TOTAL PROTEIN 7.4 g/dL (6.7-8.2); TRIGLYCERIDES 177 mg/dL; VLDL CHOLESTEROL 35 mg/dL
[2020-12-08 19:52] LABS: ESTIMATED AVERAGE GLUCOSE 126 mg/dL (70-100)
== END 2020-12-08 23:59 | disposition home or self-care (01) ==
LOC: LAB.WCP 08:00
PROVIDERS: ATTEND Family Medicine
DX: I10 Essential (primary) hypertension (principal); R73.01 Impaired fasting glucose
CPT/HCPCS: 36415; 80053; 80061; 83036; 83721; 85025

== ENCOUNTER 2021-06-16 08:00 | Outpatient (CLI) | payer MEDICARE, OTHER ==
[2021-06-16 12:49] LABS: CHOL/HDL RATIO 6.2 (<4.4); CHOLESTEROL 241 mg/dL; HDL CHOLESTEROL 39 mg/dL; LDL CHOLESTEROL,CALCULATED 162 mg/dL; LDL/HDL RATIO 4.2 (<4.4); TRIGLYCERIDES 202 mg/dL; VLDL CHOLESTEROL 40 mg/dL
== END 2021-06-16 23:59 | disposition home or self-care (01) ==
LOC: LAB.WCP 08:00
PROVIDERS: ATTEND Family Medicine
DX: E78.5 Hyperlipidemia, unspecified (principal)
CPT/HCPCS: 36415; 80061; 83721

== ENCOUNTER 2021-06-20 11:59 | Outpatient (CLI) | payer MEDICARE, OTHER ==
--- NOTE | 2021-06-20 13:40 | DEXA Report ---
PROCEDURE: Dexa Spine and/or Hip INDICATIONS: OSTEOPENIA TECHNIQUE: Dual energy x-ray absorptiometry (DXA) was performed on a Control4 System. Regions measur ed are the AP Spine, femoral neck, and if needed forearm. COMPARISON: 06/26/2016. FINDINGS: Lumbar Spine: Bone Mineral Density 1.158 g/cm/cm,T score -0.2. There is interval 5.4% increase in total lumbar sp ine bone mineral density. Left Hip: Bone Mineral Density 0.923 g/cm/cm,T score -0.7. There is interval 1.7% decrease in left total hip b one mineral density. Left Femoral Neck: Bone Mineral Density 0.922 g/cm/cm, T scores -0.8. (T score greater or equal to -1.0: NORMAL) (T score from -1.1 to -2.4: OSTEOPENIA) (T score less than or equal to -2.5 to: OSTEOPOROSIS) Impression: Normal bone mineral density. Patients with diagnosis of osteoporosis or osteopenia should have regular bone mineral density assess ment. For those eligible for Medicare, routine testing is allowed once every 2 years. Testing frequ ency can be increased for patients who have rapidly progressing disease or for those who are receivin g medical therapy to restore bone mass. Reviewed by: Marcello Murray MD on 06/20/2021 1:39 PM PST Approved by: Marcello Murray MD on 06/20/2021 1:39 PM PST Station ID: [id number]
== END 2021-06-20 12:00 | disposition home or self-care (01) ==
LOC: DI 11:59
PROVIDERS: ATTEND Family Medicine
DX: M85.88 Other specified disorders of bone density and structure, other site (principal); N63.14 Unspecified lump in the right breast, lower inner quadrant; N60.01 Solitary cyst of right breast

== ENCOUNTER 2021-06-20 12:01 | Outpatient (CLI) | payer MEDICARE, OTHER ==
--- NOTE | 2021-06-21 14:08 | Mammography Report ---
BILATERAL DIGITAL DIAGNOSTIC MAMMOGRAM 3D/2D: 06/20/2021 CLINICAL: Patient returns for a 6 month follow up of the right breast, due for bilateral exam. Comparison is made to exams dated: 09/23/2020 ultrasound, 09/23/2020 mammogram, 03/02/2020 ultrasound, mammogram, 01/22/2019 mammogram, and 01/22/2019 ultrasound - [facility]. The re are scattered fibroglandular elements in both breasts. There is a stable oval mass with a circumscribed margin in the right breast at 5 o'clock middle depth . There also is an oval asymmetry in the right breast at 12 o'clock anterior depth. This is not signif icantly changed. No other significant masses, calcifications, or other findings are seen in either breast. IMPRESSION: INCOMPLETE: NEEDS ADDITIONAL IMAGING EVALUATION The stable oval mass in the right breast at 5 o'clock middle depth most likely is a fibroadenoma and is indeterminate. An ultrasound is recommended. The oval asymmetry in the right breast at 12 o'clock anterior depth is indeterminate. This exam was interpreted at Station ID: [id number]. NOTE: For mammograms, a report in lay terms will be sent to the patient. Approximately 15% of breast malignancies will not be visualized mammographically. In the management of a palpable breast mass, a negative mammogram must not discourage biopsy of a clinically suspicious lesion. Electronically Signed By: Timo Alfred M.D. jr/:06/20/2021 13:30:43 ACR BI-RADS Category 0: Incomplete 3340F PARENCHYMAL PATTERN: (A) - The breast(s) demonstrate(s) scattered fibroglandular densities. BI-RADS CATEGORY: (0) - 0 Unspecified - other recall n/a LATERALITY: (B)
--- NOTE | 2021-06-21 14:08 | Ultrasound Report ---
LIMITED ULTRASOUND OF RIGHT BREAST: 06/20/2021 CLINICAL: Patient returns for a 6 month follow up of the right breast. Comparison is made to exams dated: 06/20/2021 mammogram, 09/23/2020 ultrasound, 09/23/2020 mammogram, 03/02/2020 ultrasound, 03/02/2020 mammogram, and 01/22/2019 mammogram - [facility]. Color flow ultrasound of the right breast 5-6 o'clock and 11-12 o'clock regions was performed. Wright scale images of the real-time examination were reviewed. There is a stable 1.3 cm x 1.1 cm x 0.6 cm oval mass in the right breast at 5 o'clock posterior depth 5 cm from the nipple. This oval mass is hypoechoic with internal echoes and no posterior acoustic s hadowing or enhancement. This correlates with mammography findings. Color flow imaging demonstrates that there is no vascularity present. There also is a stable 0.7 cm x 0.7 cm x 0.4 cm oval cyst with an irregular internal wall in the righ t breast at 12 o'clock anterior depth 4 cm from the nipple. This correlates with mammography finding s. Color flow imaging demonstrates that there is no vascularity present. IMPRESSION: BENIGN There is no sonographic evidence of malignancy. The 1.3 cm x 1.1 cm x 0.6 cm oval mass in the right breast at 5 o'clock posterior depth is not signif icantly changed from prior study and only minimally increased in size from December 2018 exam. The 0.7 cm x 0.7 cm x 0.4 cm oval cyst in the right breast at 12 o'clock anterior depth is consistent with a complicated cyst and is benign. Return to annual mammogram screening schedule is recommended. This exam was interpreted at Station ID: [id number]. Electronically Signed By: Timo Alfred M.D. jr/:06/20/2021 13:43:59 Ultrasound BI-RADS: 2 Benign BI-RADS CATEGORY: (2) - 2 RECOMMENDATION: (ANNUAL) - Recommend routine annual screening mammography. [id number] return to screening LATERALITY: (B)
== END 2021-06-20 12:02 | disposition home or self-care (01) ==
LOC: DI 12:01
PROVIDERS: ATTEND Family Medicine
DX: N63.14 Unspecified lump in the right breast, lower inner quadrant (principal); N60.01 Solitary cyst of right breast

== ENCOUNTER 2021-08-23 08:00 | Outpatient (CLI) | payer MEDICARE, OTHER | END 2021-08-23 23:59 | LOC: LAB.N 08:00 | PROVIDERS: ATTEND Family Medicine | DX: R52 Pain, unspecified (principal); Z20.822 Contact with and (suspected) exposure to COVID-19 | CPT/HCPCS: 87275; 87276; U0004 ==

== ENCOUNTER 2022-03-23 11:45 | Outpatient (CLI) | payer MEDICARE, OTHER ==
--- NOTE | 2022-03-23 12:30 | XRAY Report ---
PROCEDURE: Chest 2 View X-Ray INDICATIONS: COUGH,UNSPECIFIED TECHNIQUE: 2 view(s) of the chest. COMPARISON: 05/19/2020 FINDINGS: Surgical changes and devices: None Lungs and pleura: Diffuse chronic interstitial changes present without focal infiltrate, nodule. Mediastinum: Mediastinal contours are normal. Heart size is normal. Atherosclerotic vascular calci fication noted in the aortic arch Bones and chest wall: No suspicious bony abnormalities. Soft tissues appear unremarkable. IMPRESSION: Chronic interstitial changes without focal infiltrate Reviewed by: Moise Veronica MD on 03/23/2022 11:29 AM AKPABLO Approved by: Moise Veronica MD on 03/23/2022 11:29 AM AKPABLO Station ID: [id number]
== END 2022-03-23 11:46 | disposition home or self-care (01) ==
LOC: DI 11:45
PROVIDERS: ATTEND Family Medicine
DX: R05.9 Cough, unspecified (principal)

== ENCOUNTER 2022-04-19 09:15 | Outpatient (CLI) | payer MEDICARE, OTHER ==
[2022-04-19 12:27] LABS: BASOPHILS % (AUTO) 0.2 %; EOSINOPHILS # (AUTO) 0.2 10^3/uL (0.0-0.7); EOSINOPHILS % (AUTO) 1.2 %; HCT - HEMATOCRIT 40.4 % (37.0-47.0); HGB - HEMOGLOBIN 12.7 g/dL (12.0-16.0); LYMPHOCYTES # (AUTO) 4.6 10^3/uL (1.5-3.5); LYMPHOCYTES % (AUTO) 33.2 %; MEAN CORPUSCULAR HEMOGLOBIN 28.2 pg (27.0-31.0); MEAN CORPUSCULAR HGB CONC 31.4 g/dL (32.0-36.0); MEAN CORPUSCULAR VOLUME 89.8 fL (81.0-99.0); MEAN PLATELET VOLUME 10.3 fL (7.9-10.8); MONOCYTES # (AUTO) 0.9 10^3/uL (0.0-1.0); MONOCYTES % (AUTO) 6.3 %; NEUTROPHILS % (AUTO) 58.2 %; PLT - PLATELET COUNT 323 10^3/uL (130-450); RED CELL DISTRIBUTION WIDTH 13.8 % (12.0-15.0); WHITE BLOOD COUNT 13.7 x10^3/uL (4.8-10.8)
[2022-04-19 13:06] LABS: ALBUMIN 3.8 g/dL (3.2-5.5); ALBUMIN/GLOBULIN RATIO 1.2 (1.0-2.2); ALKALINE PHOSPHATASE 77 IU/L (42-121); ALT ALANINE AMINOTRANSFERASE 17 IU/L (10-60); AST ASPARTATE AMINOTRANSFERASE 13 IU/L (10-42); BILIRUBIN,TOTAL 0.6 mg/dL (0.2-1.0); BUN - BLOOD UREA NITROGEN 29 mg/dL (6-20); CALCIUM 9.5 mg/dL (8.5-10.3); CARBON DIOXIDE - CO2 30 mmol/L (21-32); CHLORIDE 101 mmol/L (101-111); CHOL/HDL RATIO 3.8 (<4.4); CHOLESTEROL 257 mg/dL; GFR - MDRD 54 (>89); GLUCOSE 93 mg/dL (70-100); HDL CHOLESTEROL 67 mg/dL; LDL CHOLESTEROL,CALCULATED 152 mg/dL; LDL/HDL RATIO 2.3 (<4.4); SODIUM 140 mmol/L (135-145); TOTAL PROTEIN 7.1 g/dL (6.7-8.2); TRIGLYCERIDES 188 mg/dL; VLDL CHOLESTEROL 38 mg/dL
[2022-04-19 13:26] LABS: ESTIMATED AVERAGE GLUCOSE 128 mg/dL (70-100); HEMOGLOBIN A1c% 6.1 % (4.27-6.07)
== END 2022-04-19 09:16 | disposition home or self-care (01) ==
LOC: LAB.N 09:15
PROVIDERS: ATTEND Nurse Practitioner Family
DX: I10 Essential (primary) hypertension (principal); E78.5 Hyperlipidemia, unspecified; R73.01 Impaired fasting glucose
CPT/HCPCS: 36415; 80053; 80061; 83036; 83721; 85025

== ENCOUNTER 2022-05-09 08:42 | Outpatient (CLI) | payer MEDICARE, OTHER ==
--- NOTE | 2022-05-09 09:45 | XRAY Report ---
PROCEDURE: Chest 2 View X-Ray INDICATIONS: SOB TECHNIQUE: 2 view(s) of the chest. COMPARISON: None. FINDINGS: Surgical changes and devices: None. Lungs and pleura: No pleural effusions or pneumothorax. Lungs are clear. Mediastinum: Mediastinal contours are normal. Heart size is normal. Bones and chest wall: No suspicious bony abnormalities. Soft tissues appear unremarkable. IMPRESSION: No acute cardiopulmonary pathology. Reviewed by: Marcello Murray MD on 05/09/2022 9:43 AM PDT Approved by: Marcello Murray MD on 05/09/2022 9:43 AM PDT Station ID: [id number]
[2022-05-09 12:20] LABS: CALCIUM 9.4 mg/dL (8.5-10.3); CREATININE 0.9 mg/dL (0.4-1.0); POTASSIUM 3.8 mmol/L (3.5-5.0)
== END 2022-05-09 08:43 | disposition home or self-care (01) ==
LOC: DI.N 08:42
PROVIDERS: ATTEND Physician Assistant
DX: R06.02 Shortness of breath (principal)
CPT/HCPCS: 36415; 80048; 82553; 83880; 85379

== ENCOUNTER 2022-05-23 08:02 | Outpatient (CLI) | payer MEDICARE, OTHER | END 2022-05-23 08:03 | disposition home or self-care (01) | LOC: DI 08:02 | PROVIDERS: ATTEND Physician Assistant | DX: R06.02 Shortness of breath (principal); I35.0 Nonrheumatic aortic (valve) stenosis; I34.0 Nonrheumatic mitral (valve) insufficiency | CPT/HCPCS: 93306 ==

== ENCOUNTER 2022-08-08 13:23 | Outpatient (CLI) | payer MEDICARE, OTHER ==
--- NOTE | 2022-08-09 11:10 | Ultrasound Report ---
LIMITED ULTRASOUND OF LEFT BREAST: 08/08/2022 CLINICAL: Patient returns for a 6 month follow up of the left breast. Comparison is made to exams dated: 02/02/2022 ultrasound, 02/02/2022 mammogram, 06/20/2021 mammogram, 03/02/2020 mammogram, and 01/22/2019 mammogram - [facility]. Color flow and real-time ultrasound of the left breast 3 o'clock region were performed. Wright scale images of the real-time examination were reviewed. There is a 0.9 cm x 0.7 cm x 0.4 cm irregular lymph node with a circumscribed margin in the left ishan st at 3 o'clock middle depth 6 cm from the nipple. This irregular lymph node is hypoechoic with fatt y hilum. This abnormality is not significantly changed. IMPRESSION: PROBABLY BENIGN The 0.9 cm x 0.7 cm x 0.4 cm irregular lymph node in the left breast is consistent with a lymph node and is probably benign. There is no abnormality seen in the left breast to correspond with the pain at 2 o'clock in the poste rior depth. A follow-up mammogram and an ultrasound in 6 months is recommended to demonstrate stability. This exam was interpreted at Station ID: [id number]. Electronically Signed By: Christian ibarra/cora:08/08/2022 14:18:40 Ultrasound BI-RADS: 3 Probably benign BI-RADS CATEGORY: (3) - 3 Mammo and US [id number] 6 month follow-up LATERALITY: (B)
== END 2022-08-08 13:24 | disposition home or self-care (01) ==
LOC: DI 13:23
PROVIDERS: ATTEND Nurse Practitioner Family
DX: R59.0 Localized enlarged lymph nodes (principal)

== ENCOUNTER 2022-10-04 11:06 | Outpatient (CLI) | payer MEDICARE, OTHER ==
--- NOTE | 2022-10-04 12:31 | XRAY Report ---
PROCEDURE: Mandible Bilat INDICATIONS: PAIN IN LEFT WRIST, CONTUSION OF OTHER PART OF HEA TECHNIQUE: 5 views of the mandible were acquired. COMPARISON: None. FINDINGS: Bones: No fractures or dislocations. No suspicious bony lesions. Degenerative disc and facet disea se noted in cervical spine. Soft tissues: Visualized sinuses appear clear. No suspicious soft tissue densities. IMPRESSION: No acute osseous abnormality. If clinical symptoms persist, recommend advanced imaging such as CT. Reviewed by: Traci Gaspar MD on 10/04/2022 12:30 PM PST Approved by: Traci Gaspar MD on 10/04/2022 12:30 PM PST Station ID: [id number]
--- NOTE | 2022-10-04 15:24 | XRAY Report ---
PROCEDURE: Wrist 3 View LT INDICATIONS: PAIN IN LEFT WRIST, CONTUSION OF OTHER PART OF HEA TECHNIQUE: 3 views of the wrist were acquired. COMPARISON: None FINDINGS: Bones: There is a nondisplaced fracture involving the radial styloid. No suspicious bony lesions. T here is severe degenerative joint disease at the first carpal metacarpal joint, and moderate degenera tive joint disease at the radiocarpal joint and triscaphe joint. Osteopenia. Soft tissues: No suspicious soft tissue calcifications. IMPRESSION: 1. Nondisplaced radial styloid fracture. 2. Severe degenerative joint disease. 3. Osteopenia. Reviewed by: Traci Gaspar MD on 10/04/2022 3:23 PM PST Approved by: Traci Gaspar MD on 10/04/2022 3:23 PM PST Station ID: [id number]
== END 2022-10-04 11:07 | disposition home or self-care (01) ==
LOC: DI 11:06
PROVIDERS: ATTEND Physician Assistant
DX: S00.83XA Contusion of other part of head, initial encounter (principal); S52.515A Nondisplaced fracture of left radial styloid process, initial encounter for closed fracture; M19.032 Primary osteoarthritis, left wrist; M85.88 Other specified disorders of bone density and structure, other site

== ENCOUNTER 2022-10-10 13:33 | Outpatient (CLI) | payer MEDICARE, OTHER ==
--- NOTE | 2022-10-10 11:04 | XRAY Report ---
PROCEDURE: Elbow 3 View LT INDICATIONS: LEFT ELBOW PAIN TECHNIQUE: 3 views of the elbow were acquired. COMPARISON: X-ray of helpful, 02/21/2015 FINDINGS: Bones: No fractures or dislocations. No suspicious bony lesions. Prominent degenerative spurring o f the lateral epicondyle. There is also cortical irregularity in the medial epicondyle. Mild degenera tive joint disease. Soft tissues: No elbow joint effusion. Small calcification and mild soft tissue swelling over the ol ecranon. IMPRESSION: 1. Suspect chronic lateral and medial epicondylitis. 2. Mild degenerative joint disease. 3. Soft tissue swelling and small calcification over the olecranon suggesting triceps enthesopathy. 4. If clinical symptoms persist or there is clinical suspicion for internal derangement, MRI would be helpful. Reviewed by: Traci Gaspar MD on 10/10/2022 10:02 AM SATURNINO Approved by: Traci Gaspar MD on 10/10/2022 10:02 AM SATURNINO Station ID: [id number]
--- NOTE | 2022-10-10 18:09 | XRAY Report ---
PROCEDURE: Wrist 3 View LT INDICATIONS: LEFT WRIST FRACTURE TECHNIQUE: 3 views of the wrist were acquired. COMPARISON: None FINDINGS: Bones: No fractures or dislocations. Moderate to severe osteoarthritis throughout left wrist are see n most notably in first CMC joint. No suspicious bony lesions. Soft tissues: No suspicious soft tissue calcifications. 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 No acute fracture or dislocation. No gross so ft tissue abnormalities. Reviewed by: Marcello Murray MD on 10/10/2022 6:07 PM PDT Approved by: Marcello Murray MD on 10/10/2022 6:07 PM PDT Station ID: [id number]
== END 2022-10-10 13:34 | disposition home or self-care (01) ==
LOC: DI.WOS 13:33
PROVIDERS: ATTEND Orthopaedic Surgery
DX: M19.032 Primary osteoarthritis, left wrist (principal); M19.022 Primary osteoarthritis, left elbow; M25.422 Effusion, left elbow; M25.822 Other specified joint disorders, left elbow

== ENCOUNTER → 2022-10-30 | Outpatient (CLI) | payer MEDICARE, OTHER ==
--- NOTE | 2022-10-30 13:57 | XRAY Report ---
PROCEDURE: Elbow 3 View LT INDICATIONS: LEFT ELBOW FRACTURE TECHNIQUE: 3 views of the elbow were acquired. COMPARISON: X-ray elbow 10/10/2022 FINDINGS: Bones: No fractures or dislocations. No suspicious bony lesions. As identified on prior exam, the re is spurring along the lateral condyle and cortical irregularity overlying the medial condyle, both unchanged. 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 Soft tissues: No effusion. No suspicious soft tissue calcifications or masses. IMPRESSION: Osteophytes at the epicondyles, lateral greater than medial. No distinct fracture is clearly identifi ed. If this remains of concern, CT is recommended. Reviewed by: Cyndee Clements MD on 10/30/2022 1:56 PM PDT Approved by: Cyndee Clements MD on 10/30/2022 1:56 PM PDT Station ID: [id number]
--- NOTE | 2022-10-30 14:07 | XRAY Report ---
PROCEDURE: Wrist 3 View LT INDICATIONS: LEFT WRIST FRACTURE TECHNIQUE: 3 views of the wrist were acquired. COMPARISON: X-ray wrist FINDINGS: Bones: No fractures or dislocations. No suspicious bony lesions. Radiocarpal as well as significa nt first C[facility] arthritic narrowing. Soft tissues: No suspicious soft tissue calcifications or masses. IMPRESSION: Arthritic changes as above. No fractures identified. If concern persists, CT is recommended. Reviewed by: Cyndee Clements MD on 10/30/2022 2:06 PM PDT Approved by: Cyndee Clements MD on 10/30/2022 2:06 PM PDT Station ID: [id number]
== END ==
LOC: DI.WOS 08:00
PROVIDERS: ATTEND Orthopaedic Surgery
DX: S52.125A Nondisplaced fracture of head of left radius, initial encounter for closed fracture (principal); S52.532A Colles' fracture of left radius, initial encounter for closed fracture; M19.032 Primary osteoarthritis, left wrist; M25.722 Osteophyte, left elbow

== ENCOUNTER 2023-01-08 12:34 | Outpatient (CLI) | payer MEDICARE, OTHER ==
--- NOTE | 2023-01-09 12:43 | Mammography Report ---
BILATERAL DIGITAL DIAGNOSTIC MAMMOGRAM 3D/2D: 01/08/2023 CLINICAL: Patient returns for a 6 month follow up of the left breast, due for bilateral exam. Comparison is made to exams dated: 06/20/2021 mammogram, 02/02/2022 mammogram, 09/23/2020 mammogram, 03/02/2020 mammogram, 01/22/2019 mammogram, and 12/04/2017 mammogram - [facility]. There are scattered areas of fibroglandular density in both breasts (category b / 25%-50% glandular t issue). There is a stable focal asymmetry in the left breast at 3 o'clock anterior depth. No other significant masses, calcifications, or other findings are seen in either breast. IMPRESSION: INCOMPLETE: NEEDS ADDITIONAL IMAGING EVALUATION The stable focal asymmetry in the left breast is indeterminate. An ultrasound is recommended. Based on the Tyrer Cuzick model (a risk assessment model) the patients lifetime risk is 6.9% and her 10 year risk is 6.2%. According to the ACR, ACS, and NCCN guidelines, an annual breast MRI exam chino g with mammogram is recommended if the patients lifetime risk is 20% or greater. This exam was interpreted at Station ID: [id number]. NOTE: For mammograms, a report in lay terms will be sent to the patient. Approximately 15% of breast malignancies will not be visualized mammographically. In the management of a palpable breast mass, a negative mammogram must not discourage biopsy of a clinically suspicious lesion. Electronically Signed By: Lex Coffey M.D. lc/:01/08/2023 13:55:39 ACR BI-RADS Category 0: Incomplete 3340F PARENCHYMAL PATTERN: (A) - The breast(s) demonstrate(s) scattered fibroglandular densities. BI-RADS CATEGORY: (0) - 0 Ultrasound [id number] Immediate follow-up LATERALITY: (B)
--- NOTE | 2023-01-09 12:43 | Ultrasound Report ---
LIMITED ULTRASOUND OF LEFT BREAST: 01/08/2023 CLINICAL: Patient returns for a 6 month follow up of the left breast. Comparison is made to exams dated: 01/08/2023 mammogram, 08/08/2022 ultrasound, 02/02/2022 ultrasound, mammogram, and 06/20/2021 mammogram - [facility]. Color flow ultrasound of the left breast 3 o'clock region was performed. Wright scale images of the r eal-time examination were reviewed. There is a possible 0.8 cm x 0.6 cm x 0.3 cm lymph node with a circumscribed margin in the left breas t at 3 o'clock middle depth 6 cm from the nipple. This possible lymph node is hypoechoic with fatty hilum. This abnormality is not significantly changed. IMPRESSION: PROBABLY BENIGN The possible 0.8 cm x 0.6 cm x 0.3 cm lymph node in the left breast is probably benign and stable is size. Follow-up mammogram and ultrasound in 6 months is recommended. This exam was interpreted at Station ID: [id number]. Electronically Signed By: Lex Coffey M.D. lc/:01/08/2023 13:58:18 Ultrasound BI-RADS: 3 Probably benign BI-RADS CATEGORY: (3) - 3 Mammo and [place] [id number] 6 month follow-up LATERALITY: (B)
== END 2023-01-08 12:35 | disposition home or self-care (01) ==
LOC: DI 12:34
PROVIDERS: ATTEND Nurse Practitioner Family
DX: R92.8 Other abnormal and inconclusive findings on diagnostic imaging of breast (principal)

== ENCOUNTER 2023-01-31 09:05 | Outpatient (CLI) | payer MEDICARE, OTHER ==
[2023-01-31 12:07] LABS: BASOPHILS % (AUTO) 0.5 %; EOSINOPHILS # (AUTO) 0.3 10^3/uL (0.0-0.7); HCT - HEMATOCRIT 38.9 % (37.0-47.0); HGB - HEMOGLOBIN 12.4 g/dL (12.0-16.0); LYMPHOCYTES # (AUTO) 2.6 10^3/uL (1.5-3.5); LYMPHOCYTES % (AUTO) 32.1 %; MEAN CORPUSCULAR HEMOGLOBIN 28.7 pg (27.0-31.0); MEAN CORPUSCULAR HGB CONC 31.9 g/dL (32.0-36.0); MONOCYTES # (AUTO) 0.5 10^3/uL (0.0-1.0); MONOCYTES % (AUTO) 6.2 %; NEUTROPHILS # (AUTO) 4.8 10^3/uL (1.5-6.6); NEUTROPHILS % (AUTO) 57.8 %; PLT - PLATELET COUNT 328 10^3/uL (130-450); RED BLOOD COUNT 4.32 10^6/uL (4.20-5.40); RED CELL DISTRIBUTION WIDTH 12.4 % (12.0-15.0); WHITE BLOOD COUNT 8.2 x10^3/uL (4.8-10.8)
[2023-01-31 12:19] LABS: ESTIMATED AVERAGE GLUCOSE 120 mg/dL (70-100); HEMOGLOBIN A1c% 5.8 % (4.27-6.07)
[2023-01-31 12:27] LABS: ALBUMIN 3.8 g/dL (3.2-5.5); ALBUMIN/GLOBULIN RATIO 1.1 (1.0-2.2); ALKALINE PHOSPHATASE 79 IU/L (42-121); ALT ALANINE AMINOTRANSFERASE 16 IU/L (10-60); AST ASPARTATE AMINOTRANSFERASE 17 IU/L (10-42); BILIRUBIN,TOTAL 0.4 mg/dL (0.2-1.0); BUN - BLOOD UREA NITROGEN 23 mg/dL (6-20); CALCIUM 9.5 mg/dL (8.5-10.3); CARBON DIOXIDE - CO2 31 mmol/L (21-32); CHLORIDE 101 mmol/L (101-111); CHOL/HDL RATIO 2.8 (<4.4); CHOLESTEROL 135 mg/dL; CREATININE 0.9 mg/dL (0.4-1.0); GFR - MDRD 61 (>89); GLUCOSE 109 mg/dL (70-100); HDL CHOLESTEROL 48 mg/dL; LDL CHOLESTEROL,CALCULATED 61 mg/dL; LDL/HDL RATIO 1.3 (<4.4); SODIUM 139 mmol/L (135-145); TOTAL PROTEIN 7.4 g/dL (6.7-8.2); TRIGLYCERIDES 128 mg/dL; VLDL CHOLESTEROL 26 mg/dL
[2023-01-31 12:33] LABS: THYROID STIMULATING HORMONE 2.36 uIU/mL (0.34-5.60)
== END 2023-01-31 09:06 | disposition home or self-care (01) ==
LOC: LAB.N 09:05
PROVIDERS: ATTEND Nurse Practitioner Family
DX: N18.31 Chronic kidney disease, stage 3a (principal); R73.03 Prediabetes; E78.5 Hyperlipidemia, unspecified
CPT/HCPCS: 36415; 80053; 80061; 83036; 83721; 84443; 85025

== ENCOUNTER 2023-07-13 08:05 | Outpatient (CLI) | payer MEDICARE, OTHER ==
--- NOTE | 2023-07-16 07:49 | Mammography Report ---
UNILATERAL LEFT DIGITAL DIAGNOSTIC MAMMOGRAM 3D/2D: 07/13/2023 CLINICAL: Patient returns for a 6 month follow up of the left breast. Comparison is made to exams dated: 01/08/2023 mammogram, 02/02/2022 mammogram, 06/20/2021 mammogram, mammogram, and 03/02/2020 mammogram - [facility]. There are scattered areas of fibroglandular density in the left breast (category b / 25%-50% glandula r tissue). There is a 3.2 cm irregular high density mass with a spiculated margin in the left breast at 11 o'kanwal ck anterior depth. There is suggestion of associated skin retraction. There is an oval high density mass with circumscribed margins measuring 0.8 cm that is located in the anterior upper inner quadrant approximately 1.3 cm posteromedial from the index mass. There is likel y an additional oval circumscribed satellite mass measuring 0.6 cm located medial to the index best s een on CC tomosynthesis view (slice 46). There is a partially visualized single high density lymph node in the axilla. No other significant masses or calcifications are seen in the breast. IMPRESSION: INCOMPLETE: NEEDS ADDITIONAL IMAGING EVALUATION Left breast 3.2 cm irregular high density mass at 11 o'clock with adjacent subcentimeter satellite ma sses. An ultrasound is recommended for further evaluation and is scheduled to immediately follow this examination. Based on the Tyrer Cuzick model (a risk assessment model) the patients lifetime risk is 6.9% and her 10 year risk is 6.2%. According to the ACR, ACS, and NCCN guidelines, an annual breast MRI exam chino g with mammogram is recommended if the patients lifetime risk is 20% or greater. This exam was interpreted at Station ID: [id number]. NOTE: For mammograms, a report in lay terms will be sent to the patient. Approximately 15% of breast malignancies will not be visualized mammographically. In the management of a palpable breast mass, a negative mammogram must not discourage biopsy of a clinically suspicious lesion. Electronically Signed By: Emily Block M.D., PH.D eb/:07/13/2023 14:17:17 ACR BI-RADS Category 0: Incomplete 3340F PARENCHYMAL PATTERN: (A) - The breast(s) demonstrate(s) scattered fibroglandular densities. BI-RADS CATEGORY: (0) - 0 Ultrasound [id number] Immediate follow-up LATERALITY: (B)
--- NOTE | 2023-07-16 07:49 | Ultrasound Report ---
LIMITED ULTRASOUND OF LEFT BREAST AND AXILLA: 07/13/2023 CLINICAL: Left Breast 6 month Follow Up and left palpable areas. Comparison is made to exams dated: 01/08/2023 ultrasound, 01/08/2023 mammogram, 08/08/2022 ultrasound, 02/02/2022 ultrasound, and 02/02/2022 mammogram - [facility]. Color flow ultrasound of the left breast 3 o'clock, 9-11 o'clock, and axilla regions was performed. Wright scale images of the real-time examination were reviewed. There is a 2.7 cm x 2 cm x 1.5 cm irregular mass with a spiculated margin in the left breast at 11 o' clock, 1 cm from the nipple. This irregular mass is hypoechoic. This correlates with mammographic m ass. Color flow imaging demonstrates that vascularity is present. There is an oval hypoechoic mass with indistinct margins at 9:30 o'clock, 2 cm from the nipple measur ing 0.5 x 0.4 x 0.6 cm. This mass is located approximately 1.6 cm posteromedial from the index mass a nd corresponds to posteromedial satellite mass seen on mammogram. Previously visualized oval circumscribed mass at 3 o'clock, 6 cm from the nipple measures 0.6 x 0.5 x 0.3 cm, previously 0.8 x 0.6 x 0.3 cm on ultrasound 01/08/2023. There is a single morphologically abnormal lymph node in the left axilla. IMPRESSION: HIGHLY SUGGESTIVE OF MALIGNANCY Left breast 2.7 cm irregular mass at 11 o'clock, 1 cm from the nipple. Finding is highly suspicious. Recommend ultrasound guided core biopsy. Left breast 0.6 cm satellite mass at 9:30 o'clock, 2 cm from the nipple and located approximately 1.6 cm posteromedial from index mass. Finding is suspicious. Given close proximity to index mass, defer management pending biopsy results. Single morphologically abnormal left axillary lymph node. Finding is suspicious. Recommend ultrasound guided core biopsy. Left breast 0.6 cm mass at 3 o'clock, 6 cm from the nipple, decreased in size since 01/08/2023, may re present a lymph node. Defer further management pending biopsy results. Findings and recommendations were discussed with the patient by Dr. Bains during today's examination . This exam was interpreted at Station ID: [id number]. Electronically Signed By: Emily Block M.D., PH.D eb/:07/13/2023 14:39:28 Ultrasound BI-RADS: 5 Highly suggestive of malignancy BI-RADS CATEGORY: (5) - 5 Biopsy [id number] Immediate follow-up LATERALITY: (L)
== END 2023-07-13 08:06 | disposition home or self-care (01) ==
LOC: DI 08:05
PROVIDERS: ATTEND Nurse Practitioner Family
DX: N63.22 Unspecified lump in the left breast, upper inner quadrant (principal); N63.25 Unspecified lump in the left breast, overlapping quadrants; R59.0 Localized enlarged lymph nodes; R92.322 Mammographic fibroglandular density, left breast

== ENCOUNTER 2023-07-31 13:50 | Outpatient (CLI) | payer MEDICARE, OTHER ==
[~2023-07-31 13:50] MED LIST changes: -ALBUTEROL NEB 2.5 MG/3 ML INH ONE; +LIDOCAINE 1%-EPI 1:100000 50 ML VIAL ONE; +LIDOCAINE-MPF 1% 5 ML VIAL ONE
[2023-07-31] MEDS ORDERED: LIDOCAINE-MPF 1% 5 ML VIAL TD ONE (17:15)
[2023-07-31] MEDS ORDERED: LIDOCAINE 1%-EPI 1:100000 50 ML VIAL TD ONE (18:00)
[2023-07-31] MEDS ORDERED: LIDOCAINE 1%-EPI 1:100000 50 ML VIAL TD SCH (18:00)
--- NOTE | 2023-08-01 16:46 | Mammography Report ---
UNILATERAL LEFT DIGITAL DIAGNOSTIC MAMMOGRAM WITH AXILLARY TAIL POST-PROCEDURE IMAGING FOR MARKER HELENA CEMENT: 07/31/2023 CLINICAL: Post left breast ultrasound biopsy clip placement imaging. Comparison is made to exams dated: 07/13/2023 mammogram and 01/08/2023 mammogram - [facility]. There are scattered areas of fibroglandular density in the left breast (category b / 25%-50% glandula r tissue). There is a marker clip in the appropriate position in the left breast at 11 o'clock anterior depth. IMPRESSION: POST PROCEDURE MAMMOGRAM FOR MARKER PLACEMENT There was a successful marker clip placement in the left breast anterior depth at 11:00. The axillary clip for the lymph node biopsy was not able to be visualized on mammography. Based on the Tyrer Cuzick model (a risk assessment model) the patients lifetime risk is 6.9% and her 10 year risk is 6.2%. According to the ACR, ACS, and NCCN guidelines, an annual breast MRI exam chino g with mammogram is recommended if the patients lifetime risk is 20% or greater. This exam was interpreted at Station ID: [id number]. NOTE: For mammograms, a report in lay terms will be sent to the patient. Approximately 15% of breast malignancies will not be visualized mammographically. In the management of a palpable breast mass, a negative mammogram must not discourage biopsy of a clinically suspicious lesion. Electronically Signed By: Lex Coffey M.D. lc/:08/01/2023 08:58:25 ACR BI-RADS Category Post-procedure mammogram for marker placement PARENCHYMAL PATTERN: (A) - The breast(s) demonstrate(s) scattered fibroglandular densities. BI-RADS CATEGORY: () - Unspecified - other recall n/a LATERALITY: (B)
--- NOTE | 2023-08-02 15:41 | Ultrasound Report ---
ULTRASOUND GUIDED BIOPSY LEFT BREAST WITH MARKING DEVICE INSERTED: 07/31/2023 CLINICAL: Left axillary node biopsy. PATIENT CONSENT: Risks (minor bleeding, infection, vasovagal reaction and repeat procedure), benefits and alternatives were explained to the patient and written informed consent was obtained. Correlation is made to exams dated: 07/13/2023 ultrasound, 07/13/2023 mammogram, 01/08/2023 ultrasoun d, 01/08/2023 mammogram, 08/08/2022 ultrasound, and 02/02/2022 ultrasound - [facility]. An ultrasound guided biopsy using real-time ultrasound was performed for the concerning lymph node lo cated in the left axilla. This was described on the previous ultrasound report. The skin was preppe d in the usual manner. Local anesthetic was administered to the access site. The abnormality was ap proached from the lateral aspect. An 18 gauge biopsy needle was placed adjacent to the abnormality u nder ultrasound guidance. Once the needle was documented to be in the correct location, three specim ens were obtained using a BARD biopsy device. A clip was inserted into the biopsy cavity. Post proc edure imaging demonstrates the location device at the targeted area. The specimens were sent to the laboratory for pathological analysis. IMPRESSION: ULTRASOUND GUIDED BIOPSY MALIGNANT Ultrasound guided biopsy of the lymph node in the left axilla was successful. Pathology indicates ma lignant metastatic to axillary lymph nodes (MDN) consistent with breast origin. Pathology results ar e concordant with imaging findings. Oncologic/surgical consultation recommended. This exam was interpreted at Station ID: [id number]. Lex Coffey M.D. lc/:08/02/2023 09:14:52 BI-RADS CATEGORY: () - Unspecified - other recall n/a LATERALITY: (B)
--- NOTE | 2023-08-02 15:41 | Ultrasound Report ---
ULTRASOUND GUIDED BIOPSY LEFT BREAST USING VACUUM DEVICE WITH MARKING DEVICE INSERTED AND POST MAMMOG RAPHIC IMAGIN07/31/2023 CLINICAL: Left breast mass. PATIENT CONSENT: Risks (minor bleeding, infection, vasovagal reaction and repeat procedure), benefits and alternatives were explained to the patient and written informed consent was obtained. Correlation is made to exams dated: 07/13/2023 ultrasound, 07/13/2023 mammogram, 01/08/2023 ultrasoun d, 01/08/2023 mammogram, 08/08/2022 ultrasound, and 02/02/2022 ultrasound - [facility]. An ultrasound guided biopsy using real-time ultrasound was performed for the concerning 2.7 cm x 2 cm x 1.5 cm irregular shaped mass located in the left breast at 11 o'clock anterior depth 1 cm from the nipple. This was described on the previous ultrasound report. The skin was prepped in the usual ma nner. Local anesthetic was administered to the access site. A skin jose ramon was made in the breast. Th e abnormality was approached from the lateral aspect. A 12 gauge biopsy needle was placed adjacent t o the abnormality under ultrasound guidance. Once the needle was documented to be in the correct loc ation, five specimens were obtained using the Mammotome biopsy system. A clip was inserted into the biopsy cavity. Post procedure mammographic imaging demonstrates the location device at the targeted area. The specimens were sent to the laboratory for pathological analysis. IMPRESSION: ULTRASOUND GUIDED BIOPSY MALIGNANT Ultrasound guided biopsy of the 2.7 cm x 2 cm x 1.5 cm mass in the left breast at 11 o'clock anterior depth 1 cm from the nipple was successful. Pathology indicates malignant invasive ductal carcinoma (ID). Pathology results are concordant with imaging findings. DCIS present. Surgical/oncologic consultation recommended. This exam was interpreted at Station ID: [id number]. Lex Coffey M.D. lc/:08/02/2023 09:13:54 BI-RADS CATEGORY: () - Unspecified - other recall n/a LATERALITY: (B)
== END 2023-07-31 13:51 | disposition home or self-care (01) ==
LOC: DI 13:50
PROVIDERS: ATTEND Nurse Practitioner Family
DX: D05.12 Intraductal carcinoma in situ of left breast (principal); C77.3 Secondary and unspecified malignant neoplasm of axilla and upper limb lymph nodes
CPT/HCPCS: 19083; 38505; 77065; J3490

== ENCOUNTER 2024-03-26 07:24 | Outpatient (CLI) | payer MEDICARE, OTHER ==
[2024-03-26 12:12] LABS: BASOPHILS % (AUTO) 0.4 %; EOSINOPHILS # (AUTO) 0.2 10^3/uL (0.0-0.7); EOSINOPHILS % (AUTO) 3.2 %; HCT - HEMATOCRIT 32.8 % (37.0-47.0); HGB - HEMOGLOBIN 10.4 g/dL (12.0-16.0); LYMPHOCYTES # (AUTO) 0.6 10^3/uL (1.5-3.5); LYMPHOCYTES % (AUTO) 13.6 %; MEAN CORPUSCULAR HEMOGLOBIN 29.5 pg (27.0-31.0); MEAN CORPUSCULAR HGB CONC 31.7 g/dL (32.0-36.0); MEAN CORPUSCULAR VOLUME 92.9 fL (81.0-99.0); MEAN PLATELET VOLUME 11.3 fL (7.9-10.8); MONOCYTES # (AUTO) 0.5 10^3/uL (0.0-1.0); MONOCYTES % (AUTO) 10.8 %; NEUTROPHILS # (AUTO) 3.3 10^3/uL (1.5-6.6); NEUTROPHILS % (AUTO) 71.8 %; PLT - PLATELET COUNT 220 10^3/uL (130-450); RED BLOOD COUNT 3.53 10^6/uL (4.20-5.40); RED CELL DISTRIBUTION WIDTH 12.9 % (12.0-15.0); WHITE BLOOD COUNT 4.6 x10^3/uL (4.8-10.8)
[2024-03-26 12:41] LABS: ALBUMIN 3.7 g/dL (3.2-5.5); ALBUMIN/GLOBULIN RATIO 1.4 (1.0-2.2); ALKALINE PHOSPHATASE 88 IU/L (42-121); ALT ALANINE AMINOTRANSFERASE 11 IU/L (10-60); AST ASPARTATE AMINOTRANSFERASE 15 IU/L (10-42); BILIRUBIN,TOTAL 0.3 mg/dL (0.2-1.0); BUN - BLOOD UREA NITROGEN 19 mg/dL (6-20); CALCIUM 9.3 mg/dL (8.5-10.3); CARBON DIOXIDE - CO2 28 mmol/L (21-32); CHLORIDE 102 mmol/L (101-111); CHOL/HDL RATIO 2.5 (<4.4); CHOLESTEROL 118 mg/dL; CREATININE 0.8 mg/dL (0.6-1.3); GFR - MDRD 70 (>89); GLUCOSE 104 mg/dL (74-104); HDL CHOLESTEROL 47 mg/dL; LDL CHOLESTEROL,CALCULATED 39 mg/dL; LDL/HDL RATIO 0.8 (<4.4); POTASSIUM 3.8 mmol/L (3.5-4.5); SODIUM 137 mmol/L (135-145); TOTAL PROTEIN 6.4 g/dL (6.4-8.9); TRIGLYCERIDES 158 mg/dL; VLDL CHOLESTEROL 32 mg/dL
[2024-03-26 12:44] LABS: THYROID STIMULATING HORMONE 1.47 uIU/mL (0.34-5.60)
== END 2024-03-26 07:25 | disposition home or self-care (01) ==
LOC: LAB.N 07:24
PROVIDERS: ATTEND Nurse Practitioner Family
DX: I12.9 Hypertensive chronic kidney disease with stage 1 through stage 4 chronic kidney disease, or unspecified chronic kidney disease (principal); N18.31 Chronic kidney disease, stage 3a; E78.5 Hyperlipidemia, unspecified
CPT/HCPCS: 36415; 80053; 80061; 83721; 84443; 85025